=== PATIENT | female | born 1940 | race Caucasian/White ===

== ENCOUNTER 2016-09-25 05:42 | Inpatient (IN) | payer MEDICARE, OTHER ==
[~2016-09-25] VITALS: Ht 167.6 cm; Wt 62.0 kg
[2016-09-25] VITALS (11 sets, daily range): BP systolic 89–150; BP diastolic 50–70; PULSE 68–106; RESP 16–20; TEMP 97.5–100.3; O2SAT 93–99
[~2016-09-25 05:42] MED LIST: ACET325 PO; APIX5 PO; ATOR80TA PO; DIAZ5TAB PO; DILTCD240 PO; LORA10TA PO; METO100T PO; OMEP20TA PO
[2016-09-25] MEDS ORDERED: ACETAMINOPHEN 325 MG TAB PO ONE (06:00)
[2016-09-25] MEDS ORDERED: SODIUM CHLORID 0.9% 500 ML INJ 500 ML IV ONE ×2 (06:00→07:15)
--- NOTE | 2016-09-25 06:19 | PD ---
HPI Chief Complaint: generalized weakness Time Seen by Provider: 05:44 Travel History International Travel<30 days: No Contact w/Intl Traveler<30days: No Traveled to known affect area: No History of Present Illness HPI The patient is a 76-year-old female who presents to the emergency department via EMS for generalized weakness and malaise. The patient has a one- week history of generalized weakness which has progressively worsened. The patient called her physician, home physician at work, who evaluated her at home yesterday. They ordered an outpatient chest x-ray, but the patient does not know the results of the x-ray. The patient states she's had progressive weakness over the last week, was noted to have a fever of 100.4 by EMS. The patient does note decreased ability to get around the house with a walker, lives with her sister at home. The patient denies any dysuria, frequency, or urgency. She does note several episodes of vomiting with diarrhea over the last several days. She also complained of body aches which have currently resolved. She notes an occasional dry nonproductive cough. The patient does have a history of atrial fibrillation for which she takes Eliquis and metoprolol , denies digoxin use. However, she does not know her other medications. The patient's primary physician is a home health care physician, and her residency director is Dr. Ole Orellana. 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 ) Cardiovascular Problems: Yes (afib) Coronary Artery Disease: Yes Diabetes: No Endocrine: No Genitourinary: No Hepatitis: No Hiatal Hernia: Yes Hypertension: Yes Immune Disorder: No Musculoskeletal: No Neurologic: No Psychiatric: No Reproductive: No Respiratory: No Immunizations Current: No (pt refuses flue shot) Thyroid Disease: No Triglycerides - High: Yes Menopausal: Yes Past Surgical History Abdominal Surgery: No AICD: No Cardiac Surgery: Yes (r endartectomy) Ear Surgery: No Eye Surgery: Yes (CATARACTS BILAT) Genitourinary Surgery: No Gynecologic Surgery: No Joint Replacement: No Oral Surgery: No Pacemaker: No Thoracic Surgery: No Other Surgery: Yes (carotic endarterectomy, colon removed) Social History Alcohol Use: No Tobacco Use: No Substance Use: No Allergies-Medications (Allergen,Severity, Reaction): Coded Allergies: Sulfa (Verified Allergy, Severe, Hives, 05/19/16) Aspirin (Verified Allergy, Unknown, 05/19/16) Reported Meds & Prescriptions Reported Meds & Active Scripts Active Claritin 10 Mg Tab (Loratadine) 10 Mg Tab 10 Mg PO DAILY 30 Days Reported Tylenol (Acetaminophen) 325 Mg Tab 325 Mg PO Q4H PRN Diltiazem Cd 240 mg 240 Mg Cap 1 Cap PO DAILY Eliquis (Apixaban) 5 Mg Tab 1 Tab PO BID Atorvastatin 80 mg (Atorvastatin Calcium) 80 Mg Tab 1 Tab PO HS Metoprolol Tartrate 100 mg (Metoprolol Tartrate) 100 Mg Tab 100 Mg PO TID may take as needed for increased heart rate Omeprazole 20 mg (Omeprazole) 20 Mg Tab 2 Tabs PO DAILY Diazepam 5 mg (Diazepam) 5 Mg Tab 5 Mg PO TIDPRN Review of Systems Except as stated in HPI: all other systems reviewed are Neg General / Constitutional: Positive: Fever HENT: No: Lightheadedness Cardiovascular: No: Chest Pain or Discomfort Respiratory: Positive: Cough Gastrointestinal: Positive: Nausea, Vomiting, Diarrhea, No: Abdominal Pain Genitourinary: No: Dysuria Musculoskeletal: Positive: Weakness Neurologic: Positive: Weakness Physical Exam Narrative GENERAL: Awake, alert, pleasant 76-year-old female who appears her stated age and is in no acute respiratory distress. SKIN: Warm and dry. HEAD: Atraumatic. Normocephalic. EYES: Pupils equal and round. No scleral icterus. No injection or drainage. ENT: No nasal bleeding or discharge. Dry mucous membranes.. NECK: Trachea midline. No JVD. CARDIOVASCULAR: Irregularly irregular, tachycardic with a heart rate of 110. RESPIRATORY: No accessory muscle use. Few scattered rhonchi in the bases bilaterally. GASTROINTESTINAL: Abdomen soft, non-tender, nondistended. No rebound tenderness. Back: No CVA tenderness. MUSCULOSKELETAL: No obvious deformities. No clubbing. No cyanosis. No edema. NEUROLOGICAL: Awake and alert. No obvious cranial nerve deficits. Motor grossly within normal limits. Normal speech. PSYCHIATRIC: Appropriate mood and affect; insight and judgment normal. Data Data Last Documented VS Vital Signs Date Time Temp Pulse Resp B/P Pulse Ox O2 Delivery O2 Flow Rate FiO2 09/25/16 06:00 115 09/25/16 06:00 16 144/67 Room Air 09/25/16 05:50 100.3 95 Orders Complete Blood Count With Diff (09/25/16 05:56) Comprehensive Metabolic Panel (09/25/16 05:56) Urinalysis - C+S If Indicated (09/25/16 05:56) Influenzae A/B Antigen (09/25/16 05:56) Electrocardiogram (09/25/16 ) Chest, Single Ap (09/25/16 ) Lactic Acid (09/25/16 05:56) Blood Culture (09/25/16 05:56) Sodium Chlorid 0.9% 500 Ml Inj (Ns 500 M (09/25/16 06:00) Acetaminophen (Tylenol) (09/25/16 06:00) Digoxin (09/25/16 05:56) Cath For Specimen (09/25/16 06:08) Ct Abd/Pel W/O Iv Contrast (09/25/16 ) Creatine Kinase (Cpk) (09/25/16 05:58) Troponin I (09/25/16 05:58) Labs Laboratory Tests Test 09/25/16 09/25/16 05:58 06:10 White Blood Count 15.9 TH/MM3 Red Blood Count 3.99 MIL/MM3 Hemoglobin 11.9 GM/DL Hematocrit 35.8 % Mean Corpuscular Volume 89.8 FL Mean Corpuscular Hemoglobin 29.7 PG Mean Corpuscular Hemoglobin 33.1 % Concent Red Cell Distribution Width 13.3 % Platelet Count 212 TH/MM3 Mean Platelet Volume 7.7 FL Neutrophils (%) (Auto) 89.8 % Lymphocytes (%) (Auto) 4.1 % Monocytes (%) (Auto) 5.5 % Eosinophils (%) (Auto) 0.1 % Basophils (%) (Auto) 0.5 % Neutrophils # (Auto) 14.3 TH/MM3 Lymphocytes # (Auto) 0.7 TH/MM3 Monocytes # (Auto) 0.9 TH/MM3 Eosinophils # (Auto) 0.0 TH/MM3 Basophils # (Auto) 0.1 TH/MM3 CBC Comment DIFF FINAL Differential Comment Sodium Level 139 MEQ/L Potassium Level 3.7 MEQ/L Chloride Level 103 MEQ/L Carbon Dioxide Level 27.0 MEQ/L Anion Gap 9 MEQ/L Blood Urea Nitrogen 17 MG/DL Creatinine 1.16 MG/DL Estimat Glomerular Filtration 45 ML/MIN Rate Random Glucose 120 MG/DL Lactic Acid Level 1.2 mmol/L Calcium Level 8.6 MG/DL Total Bilirubin 0.6 MG/DL Aspartate Amino Transf 27 U/L (AST/SGOT) Alanine Aminotransferase 19 U/L (ALT/SGPT) Alkaline Phosphatase 104 U/L Total Creatine Kinase 78 U/L Troponin I LESS THAN 0.02 NG/ML Total Protein 6.9 GM/DL Albumin 3.2 GM/DL Digoxin Level LESS THAN 0.1 NG/ML Urine Color LIGHT-YELLOW Urine Turbidity CLEAR Urine pH 7.0 Urine Specific [place] 1.010 Urine Protein NEG mg/dL Urine Glucose (UA) NEG mg/dL Urine Ketones NEG mg/dL Urine Occult Blood SMALL Urine Nitrite NEG Urine Bilirubin NEG Urine Urobilinogen LESS THAN 2.0 MG/DL Urine Leukocyte Esterase NEG Urine RBC 24 /hpf Urine WBC 1 /hpf Microscopic Urinalysis Comment CULT NOT INDICATED MDM Medical Decision Making Medical Screen Exam Complete: Yes Emergency Medical Condition: Yes Medical Record Reviewed: Yes Interpretation(s) Date/Time Procedure Status Source Growth 09/25/16 05:58 Aerobic Blood Culture Received Blood Peripheral Pending 09/25/16 05:58 Anaerobic Blood Culture Received Blood Peripheral Pending 09/25/16 05:58 Influenza Types A,B Antigen (VANNA) - Final Complete Nasal Aspirate NEGATIVE FOR FLU A AND B ANTIGEN.... 09/25/16 06:15 Aerobic Blood Culture Received Blood Peripheral Pending 09/25/16 06:15 Anaerobic Blood Culture Received Blood Peripheral Pending Last Impressions Chest X-Ray 09/25/16 0000 Signed Impressions: Service Date/Time: September 06:06 - CONCLUSION: Abnormal chest appearance. Geoff Hu MD Abdomen/Pelvis CT 09/25/16 0000 Signed Impressions: Service Date/Time: September 06:40 - CONCLUSION: Findings in the lung bases warranting further evaluation with CT chest. No definite acute CT findings in the abdomen or pelvis. Geoff Hu MD Laboratory Tests Test 09/25/16 09/25/16 05:58 06:10 White Blood Count 15.9 TH/MM3 Red Blood Count 3.99 MIL/MM3 Hemoglobin 11.9 GM/DL Hematocrit 35.8 % Mean Corpuscular Volume 89.8 FL Mean Corpuscular Hemoglobin 29.7 PG Mean Corpuscular Hemoglobin 33.1 % Concent Red Cell Distribution Width 13.3 % Platelet Count 212 TH/MM3 Mean Platelet Volume 7.7 FL Neutrophils (%) (Auto) 89.8 % Lymphocytes (%) (Auto) 4.1 % Monocytes (%) (Auto) 5.5 % Eosinophils (%) (Auto) 0.1 % Basophils (%) (Auto) 0.5 % Neutrophils # (Auto) 14.3 TH/MM3 Lymphocytes # (Auto) 0.7 TH/MM3 Monocytes # (Auto) 0.9 TH/MM3 Eosinophils # (Auto) 0.0 TH/MM3 Basophils # (Auto) 0.1 TH/MM3 CBC Comment DIFF FINAL Differential Comment Sodium Level 139 MEQ/L Potassium Level 3.7 MEQ/L Chloride Level 103 MEQ/L Carbon Dioxide Level 27.0 MEQ/L Anion Gap 9 MEQ/L Blood Urea Nitrogen 17 MG/DL Creatinine 1.16 MG/DL Estimat Glomerular Filtration 45 ML/MIN Rate Random Glucose 120 MG/DL Lactic Acid Level 1.2 mmol/L Calcium Level 8.6 MG/DL Aspartate Amino Transf 27 U/L (AST/SGOT) Alanine Aminotransferase 19 U/L (ALT/SGPT) Albumin 3.2 GM/DL Urine Color LIGHT-YELLOW Urine Turbidity CLEAR Urine pH 7.0 Urine Specific [place] 1.010 Urine Protein NEG mg/dL Urine Glucose (UA) NEG mg/dL Urine Ketones NEG mg/dL Urine Occult Blood SMALL Urine Nitrite NEG Urine Bilirubin NEG Urine Urobilinogen LESS THAN 2.0 MG/DL Urine Leukocyte Esterase NEG Urine RBC 24 /hpf Urine WBC 1 /hpf Microscopic Urinalysis Comment CULT NOT INDICATED Differential Diagnosis Differential diagnosis includes UTI, influenza, pneumonia, hyponatremia, dehydration, hypokalemia, inability to care for self. Narrative Course IV was established, labs were drawn and sent, and the patient was placed on cardiac telemetry monitoring and continuous pulse oximetry monitoring. UA was sent to lab. Influenza screen was sent to lab. Chest x-ray was obtained. The patient was administered IV fluids and Tylenol. The patient's white count was elevated at 15.8. Influenza screen is negative. CT of the abdomen and pelvis was ordered to evaluate for possible colitis with nausea, vomiting, diarrhea, and decreased oral intake with fever. The patient was signed out to the oncoming physician at 7 AM. The patient may need admission/23 hour observation for IV fluid rehydration and physical therapy consultation. Chest x-ray reveals perihilar infiltrate and infiltrate in the right base, CT of the abdomen and pelvis reveals abnormalities in the chest, but no acute abdominal findings. UA is negative. The patient appears to have pneumonia, therefore, was administered Rocephin and Zithromax. The patient will be admitted to the on -call medical service. Sepsis Criteria SIRS Criteria (2 or more): Heart rate over 90, WBC > 90214, < 4000 or > 10% bands Physician Communication Physician Communication [facility] were paged for admission. I discussed the patient with Dr. Kennedy who agrees with admission. Diagnosis Primary Impression: Community acquired pneumonia Additional Impression: Sepsis Qualified Code: A41.9 - Sepsis, due to unspecified organism Admitting Information Admitting Physician Requests: Admit Condition: Stable Sj Torrez MD Sep 25, 2016 06:19
[2016-09-25 06:38] LABS: BLOOD, URINE SMALL (NEG); GLUCOSE,URINE NEG (NEG); KETONE, URINE NEG (NEG); NITRITE,URINE NEG (NEG); URINE COLOR LIGHT-YELLOW (YELLW/STRAW)
--- NOTE | 2016-09-25 06:41 | RADRPT ---
EXAM DATE/TIME: 09/25/2016 06:06 [facility] COMPARISON: CHEST SINGLE AP, April 17, 2016, 13:41. INDICATIONS : Fever. MEDICAL HISTORY : A-Fib SURGICAL HISTORY : None. ENCOUNTER: Initial ACUITY: 1 day PAIN SCORE: 0/10 LOCATION: Bilateral chest FINDINGS: There is mild perihilar and basilar infiltrate on the right. Slight nodular density at the lateral le ft lung base. Cardiomediastinal contours grossly satisfactory for technique and projection. CONCLUSION: Abnormal chest appearance. Geoff Hu MD on September 25, 2016 at 6:38 Board Certified Radiologist. This report was verified electronically.
[2016-09-25 06:42] LABS: AUTOMATED NEUTROPHIL # 14.3 TH/MM3 (1.8-7.7); BASOPHIL # 0.1 TH/MM3 (0-0.2); BASOPHIL % 0.5 % (0.0-2.0); EOSINOPHIL % 0.1 % (0.0-4.0); HEMATOCRIT 35.8 % (35.0-46.0); HEMO FLAGS DIFF FINAL; LYMPH % 4.1 % (9.0-44.0); LYMPHOCYTE # 0.7 TH/MM3 (1.0-4.8); MEAN CELL VOLUME 89.8 FL (80.0-100.0); MEAN CORPUSCULAR HEMOGLOBIN 29.7 PG (27.0-34.0); MEAN CORPUSCULAR HGB CONC 33.1 % (32.0-36.0); MONO % 5.5 % (0.0-8.0); NEUT % 89.8 % (16.0-70.0); PLATELET COUNT 212 TH/MM3 (150-450); RED BLOOD COUNT 3.99 MIL/MM3 (4.00-5.30); RED CELL DISTRIBUTION WIDTH 13.3 % (11.6-17.2); WHITE BLOOD COUNT 15.9 TH/MM3 (4.0-11.0)
[2016-09-25 06:48] LABS: ALT (GPT) 19 U/L (10-53); ANION GAP 9 MEQ/L (5-15); AST (GOT) 27 U/L (15-37); BLOOD UREA NITROGEN 17 MG/DL (7-18); CHLORIDE 103 MEQ/L (98-107); GLOMERULAR FILTRATION RATE 45 ML/MIN (>89); POTASSIUM 3.7 MEQ/L (3.5-5.1); SODIUM (NA) 139 MEQ/L (136-145)
[2016-09-25 06:53] LABS: COMMENT (UR) CULT NOT INDICATED; CULTURE IF INDICATED CULT NOT INDICATED
--- NOTE | 2016-09-25 06:55 | RADRPT ---
EXAM DATE/TIME: 09/25/2016 06:40 [facility] COMPARISON: No previous studies available for comparison. INDICATIONS : Malaise and diarrhea for one week. ORAL CONTRAST: No oral contrast ingested. RADIATION DOSE: 6.13 CTDIvol (mGy) MEDICAL HISTORY : Hypertension. Hernia, hiatal. skin cancer, colorectal cancer SURGICAL HISTORY : colectomy ENCOUNTER: Initial ACUITY: 1 week PAIN SCALE: 6/10 LOCATION: abdomen TECHNIQUE: Volumetric scanning of the abdomen and pelvis was performed. Using automated exposure control and ad justment of the mA and/or kV according to patient size, radiation dose was kept as low as reasonably achievable to obtain optimal diagnostic quality images. FINDINGS: LOWER LUNGS: Nodular density in the anterior lateral left lung base. Mild infiltrate and effusion at the right bas e. LIVER: Homogeneous density without lesion. There is no dilation of the biliary tree. No calcified gallston es. SPLEEN: Normal size without lesion. PANCREAS: Within normal limits. KIDNEYS: Normal in size and shape. There is no mass, stone, or hydronephrosis. ADRENAL GLANDS: Within normal limits. VASCULAR: Dense atherosclerotic calcification involving aorta and branch vessels. 3.1 cm abdominal aortic aneur ysm. BOWEL/MESENTERY: The stomach, small bowel, and colon demonstrate no acute abnormality. There is no free intraperitone al air or fluid. ABDOMINAL WALL: Within normal limits. RETROPERITONEUM: There is no lymphadenopathy. BLADDER: No wall thickening or mass. REPRODUCTIVE: Within normal limits. INGUINAL: There is no lymphadenopathy or hernia. MUSCULOSKELETAL: Within normal limits for patient age. CONCLUSION: Findings in the lung bases warranting further evaluation with CT chest. No definite acute CT findings in the abdomen or pelvis. Geoff Hu MD on September 25, 2016 at 6:50 Board Certified Radiologist. This report was verified electronically.
[2016-09-25 07:03] LABS: ALKALINE PHOSPHATASE 104 U/L (45-117); DIGOXIN LESS THAN 0.1 NG/ML (0.8-2.0); TOTAL BILIRUBIN ADULT 0.6 MG/DL (0.2-1.0)
[2016-09-25 07:05] LABS: CREATINE KINASE 78 U/L (26-192)
[2016-09-25] MEDS ORDERED: AZITHROMYCIN INJ 500 MG in SODIUM CHLOR 0.9% 250 ML INJ 250 ML IV ONE (07:15)
[2016-09-25] MEDS ORDERED: ONDANSETRON HCL 4 MG/2 ML VIAL IVP PRN (07:15)
[2016-09-25] MEDS ORDERED: cefTRIAXone INJ 1,000 MG in SODIUM CHLORIDE 0.9% INJ 100 ML IV ONE (07:15)
[2016-09-25] MEDS ORDERED: SODIUM CHLORIDE 0.9% FLUSH 5 ML FLUSH FLUSH PRN (07:15)
[2016-09-25] MEDS ORDERED: NALOXONE HCL 0.4 MG/ML AMP IV PRN (07:15)
[2016-09-25] MEDS ORDERED: LIPI80TA PO (07:17)
[2016-09-25] MEDS ORDERED: APIX5TAB PO (07:17)
[2016-09-25] MEDS ORDERED: DILT-64 PO (07:17)
[2016-09-25] MEDS ORDERED: DIAZ5TAB PO (07:17)
[2016-09-25] MEDS ORDERED: OMEP20CA2 PO (07:17)
[2016-09-25] MEDS ORDERED: METO100T PO (07:17)
[2016-09-25] MEDS ORDERED: DIAZEPAM 5 MG TAB PO PRN (08:15)
--- NOTE | 2016-09-25 08:23 | HHI.HP ---
[facility] Non-Staff Admission Diagnosis pneumonia, sepsis, hypoxia Diagnoses: Chief Complaint: generalized weakness, sob Travel History International Travel<30 Days: No Contact w/Intl Traveler <30 Da: No Traveled to Known Affected Are: No History of Present Illness Pleasant 76 yo female with PMH of HTN, HLD, AFIB, GERD, anxiety came to the ED with c/o generalized weakness, sob, cough for the past 3-4 days getting worse. Patient says she usually ambulate with a walker at home. Says she felt so weak that she fell twice, says she did not hit any parts of her body. Saus she is coughing but not much because she feels weak. Says she has associated fevers today took tylenol at home on multiple occasions. No headache. No chest pain. No n/v/d/c. Review of Systems Other 12 ROS reviewed and negative except stated in HPI Past Family Social History Past Medical History HTN, HLD, AFIB, GERD, anxiety Past Surgical History Bilateral knee meniscal repair Right CEA Reported Medications Last Impressions Chest X-Ray 09/25/16 0000 Signed Impressions: Service Date/Time: September 06:06 - CONCLUSION: Abnormal chest appearance. Geoff Hu MD Abdomen/Pelvis CT 09/25/16 0000 Signed Impressions: Service Date/Time: September 06:40 - CONCLUSION: Findings in the lung bases warranting further evaluation with CT chest. No definite acute CT findings in the abdomen or pelvis. Geoff Hu MD Allergies: Coded Allergies: Sulfa (Verified Allergy, Severe, Hives, 05/19/16) Aspirin (Verified Allergy, Unknown, 05/19/16) Family History Mother HTN, arthritis Father colon cancer Brother with brain aneurysm Social History Quit smoking in 1998 Quit EtOH use in 1981 Physical Exam Vital Signs Vital Signs Date Time Temp Pulse Resp B/P Pulse Ox O2 Delivery O2 Flow Rate FiO2 09/25/16 07:10 99.8 94 20 140/66 99 Nasal Cannula 2 09/25/16 06:00 115 09/25/16 06:00 100 16 144/67 Room Air 09/25/16 05:50 100.3 106 16 150/70 95 Physical Exam GENERAL: This is a peasant 76 yo female, well-nourished, well-developed patient , in no apparent distress. SKIN: No rashes, ecchymoses or lesions. Cool and dry. HEAD: Atraumatic. Normocephalic. No temporal or scalp tenderness. EYES: Pupils equal round and reactive. Extraocular motions intact. No scleral icterus. No injection or drainage. ENT: Nose without bleeding, purulent drainage or septal hematoma. Throat without erythema, tonsillar hypertrophy or exudate. Uvula midline. Airway patent. NECK: Trachea midline. No JVD or lymphadenopathy. Supple, nontender, no meningeal signs. CARDIOVASCULAR: Regular rate and rhythm without murmurs, gallops, or rubs. RESPIRATORY: Clear to auscultation. Breath sounds equal bilaterally. No wheezes , rales, or rhonchi. GASTROINTESTINAL: Abdomen soft, non-tender, nondistended. No hepato-splenomegaly , or palpable masses. No guarding. MUSCULOSKELETAL: Extremities without clubbing, cyanosis, or edema. No joint tenderness, effusion, or edema noted. No calf tenderness. Negative Homans sign bilaterally. NEUROLOGICAL: Awake and alert. Cranial nerves II through XII intact. Motor and sensory grossly within normal limits. Five out of 5 muscle strength in all muscle groups. Normal speech. Laboratory Laboratory Tests Test 09/25/16 09/25/16 05:58 06:10 White Blood Count 15.9 Red Blood Count 3.99 Hemoglobin 11.9 Hematocrit 35.8 Mean Corpuscular Volume 89.8 Mean Corpuscular Hemoglobin 29.7 Mean Corpuscular Hemoglobin 33.1 Concent Red Cell Distribution Width 13.3 Platelet Count 212 Mean Platelet Volume 7.7 Neutrophils (%) (Auto) 89.8 Lymphocytes (%) (Auto) 4.1 Monocytes (%) (Auto) 5.5 Eosinophils (%) (Auto) 0.1 Basophils (%) (Auto) 0.5 Neutrophils # (Auto) 14.3 Lymphocytes # (Auto) 0.7 Monocytes # (Auto) 0.9 Eosinophils # (Auto) 0.0 Basophils # (Auto) 0.1 CBC Comment DIFF FINAL Differential Comment Sodium Level 139 Potassium Level 3.7 Chloride Level 103 Carbon Dioxide Level 27.0 Anion Gap 9 Blood Urea Nitrogen 17 Creatinine 1.16 Estimat Glomerular Filtration 45 Rate Random Glucose 120 Lactic Acid Level 1.2 Calcium Level 8.6 Total Bilirubin 0.6 Aspartate Amino Transf 27 (AST/SGOT) Alanine Aminotransferase 19 (ALT/SGPT) Alkaline Phosphatase 104 Total Creatine Kinase 78 Troponin I LESS THAN 0.02 Total Protein 6.9 Albumin 3.2 Digoxin Level LESS THAN 0.1 Urine Color LIGHT-YELLOW Urine Turbidity CLEAR Urine pH 7.0 Urine Specific [place] 1.010 Urine Protein NEG Urine Glucose (UA) NEG Urine Ketones NEG Urine Occult Blood SMALL Urine Nitrite NEG Urine Bilirubin NEG Urine Urobilinogen LESS THAN 2.0 Urine Leukocyte Esterase NEG Urine RBC 24 Urine WBC 1 Microscopic Urinalysis Comment CULT NOT INDICATED Date/Time Procedure Status Source Growth 09/25/16 06:15 Aerobic Blood Culture Received Blood Peripheral Pending 09/25/16 06:15 Anaerobic Blood Culture Received Blood Peripheral Pending 09/25/16 05:58 Influenza Types A,B Antigen (VANNA) - Final Complete Nasal Aspirate NEGATIVE FOR FLU A AND B ANTIGEN.... Result Diagram: 09/25/16 0558 09/25/16 0558 Imaging Last Impressions Chest X-Ray 09/25/16 0000 Signed Impressions: Service Date/Time: September 06:06 - CONCLUSION: Abnormal chest appearance. Geoff Hu MD Abdomen/Pelvis CT 09/25/16 0000 Signed Impressions: Service Date/Time: September 06:40 - CONCLUSION: Findings in the lung bases warranting further evaluation with CT chest. No definite acute CT findings in the abdomen or pelvis. Geoff Hu MD Assessment and Plan Assessment and Plan Pleasant 76 yo female with PMH of HTN, HLD, AFIB, GERD, anxiety came to the ED with c/o generalized weakness, sob, cough for the past 3-4 days getting worse. Sepsis on admission ( leukocytosis, tachycardia). Pneumonia. Hypoxia. Acute respiratory failure requiring O2 by NC. Patient doesn't use O2 at home. Fever 100.3 ( patient took tylenol on multiple occasions at home [employer]PER[employer]) IGOR likely dehydration 2/2 decreased PO intake Blood cx pending Sputum cx pending. Legionella/Pneumococal urine Ag pending. Influenza A/B negative Start Azithomycinn and ceftriaxone IV O2 supplement , keep O2 sat > 94% CXR reviewed Repeat CBC, BMP in the morning Gentle IVF, monitor kidney function Chronic medical problems stable at this time. HTN, HLD, AFIB, GERD, anxiety Restart home meds. Monitor VS. Adjust meds if need. DVT ppx SCD/TEDs, on xarelto. Code Status full Discussed Condition With patient, nurse Physician Certification 2 Midnight Certification Type: Admission for Inpatient Services Order for Inpatient Services The services are ordered in accordance with Medicare regulations or non- Medicare payer requirements, as applicable. In the case of services not specified as inpatient-only, they are appropriately provided as inpatient services in accordance with the 2-midnight benchmark. Estimated LOS (days): 3 days is the estimated time the patient will need to remain in the hospital, assuming treatment plan goals are met and no additional complications. Post-Hospital Plan: Not yet determined Lesley Huerta MD Sep 25, 2016 08:23
[2016-09-25] MEDS: DILTIAZEM-CD 240 MG CAP ER PO SCH (09:00)
[2016-09-25] MEDS: METOPROLOL TARTRATE 100 MG TAB PO SCH ×3 (09:00→18:48)
[2016-09-25] MEDS: APIXABAN 5 MG TABLET PO SCH ×2 (12:12→21:47)
[2016-09-25] MEDS: PANTOPRAZOLE SOD 20 MG DELAYED RELEASE TAB PO SCH (12:13)
[2016-09-25] MEDS: SODIUM CHLORIDE 0.9% FLUSH 5 ML FLUSH FLUSH SCH ×2 (12:19→21:47)
[2016-09-25] MEDS: guaiFENesin E.R. 600 MG TAB PO SCH ×2 (15:25→21:47)
[2016-09-25] MEDS: SODIUM CHLOR 0.9% 1000 ML INJ 1,000 ML IV SCH ×2 (16:18→17:00)
[2016-09-25] MEDS ORDERED: HEPARIN SODIUM - SQ 10,000 UNITS/ML VIAL SQ SCH (18:00)
--- NOTE | 2016-09-25 20:56 | EKG ---
Date Performed: 09/25/2016 Time Performed: 05:31:10 PTAGE: 76 years EKG: ATRIAL FIBRILLATION WITH RAPID VENTRICULAR RESPONSE ABNORMAL RHYTHM ECG PREVIOUS TRACING : 04/17/2016 13.16 DOCTOR: Werner Vazquez Interpretating Date/Time 09/25/2016 20:54:40
[2016-09-25] MEDS: ATORVASTATIN 80 MG TAB PO SCH (21:47)
[2016-09-26 02:00] VITALS: BP 140/70; PULSE 105; RESP 19; TEMP 99.3; O2SAT 93
[2016-09-26] MEDS: SODIUM CHLOR 0.9% 1000 ML INJ 1,000 ML IV SCH ×3 (03:00→17:43)
[2016-09-26 06:00] VITALS: BP 135/69; PULSE 98; RESP 19; TEMP 99.3; O2SAT 93
[2016-09-26] MEDS: cefTRIAXone INJ 1,000 MG in SODIUM CHLORIDE 0.9% INJ 100 ML IV SCH (06:06)
[2016-09-26 06:07] LABS: AUTOMATED NEUTROPHIL # 10.3 TH/MM3 (1.8-7.7); BASOPHIL # 0.1 TH/MM3 (0-0.2); BASOPHIL % 0.5 % (0.0-2.0); EOSINOPHIL % 0.3 % (0.0-4.0); HEMATOCRIT 38.2 % (35.0-46.0); HEMO FLAGS DIFF FINAL; LYMPH % 9.3 % (9.0-44.0); LYMPHOCYTE # 1.2 TH/MM3 (1.0-4.8); MEAN CELL VOLUME 88.9 FL (80.0-100.0); MEAN CORPUSCULAR HEMOGLOBIN 29.9 PG (27.0-34.0); MEAN CORPUSCULAR HGB CONC 33.7 % (32.0-36.0); MONO % 8.8 % (0.0-8.0); NEUT % 81.1 % (16.0-70.0); PLATELET COUNT 212 TH/MM3 (150-450); WHITE BLOOD COUNT 12.8 TH/MM3 (4.0-11.0)
[2016-09-26 06:35] LABS: ALT (GPT) 22 U/L (10-53); ANION GAP 8 MEQ/L (5-15); AST (GOT) 38 U/L (15-37); BICARBONATE 30.1 MEQ/L (21.0-32.0); BLOOD UREA NITROGEN 12 MG/DL (7-18); CHLORIDE 104 MEQ/L (98-107); GLOMERULAR FILTRATION RATE 62 ML/MIN (>89); POTASSIUM 3.7 MEQ/L (3.5-5.1); SODIUM (NA) 142 MEQ/L (136-145)
[2016-09-26 06:38] LABS: ALKALINE PHOSPHATASE 108 U/L (45-117); TOTAL BILIRUBIN ADULT 0.8 MG/DL (0.2-1.0)
[2016-09-26] MEDS: guaiFENesin E.R. 600 MG TAB PO SCH ×2 (07:56→21:05)
[2016-09-26] MEDS: PANTOPRAZOLE SOD 20 MG DELAYED RELEASE TAB PO SCH (07:56)
[2016-09-26] MEDS: METOPROLOL TARTRATE 100 MG TAB PO SCH ×3 (08:59→17:43)
[2016-09-26] MEDS: DILTIAZEM-CD 240 MG CAP ER PO SCH (08:59)
[2016-09-26] MEDS: SODIUM CHLORIDE 0.9% FLUSH 5 ML FLUSH FLUSH SCH ×2 (08:59→21:00)
[2016-09-26] MEDS: AZITHROMYCIN INJ 500 MG in SODIUM CHLOR 0.9% 250 ML INJ 250 ML IV SCH (08:59)
[2016-09-26] MEDS ORDERED: INFLUENZA VIRUS VACCINE (QUADRIVALENT) 0.5 ML SYR IM ONE (10:00)
[2016-09-26] MEDS ORDERED: PNEUMOCOCCAL POLYVALENT INJ 25 MCG/0.5 ML SYR IM ONE (10:00)
[2016-09-26] MEDS: APIXABAN 5 MG TABLET PO SCH ×2 (10:16→21:05)
--- NOTE | 2016-09-26 10:44 | HHI.PR ---
Subjective Remarks Feels improved today. However she is still weak and not able to go to the bedside commode without help. She however wants to improve and go home instead of SNF. No fevers overnight. No n/v/d/c. Objective Vitals Vital Signs Date Time Temp Pulse Resp B/P Pulse Ox O2 Delivery O2 Flow Rate FiO2 09/26/16 06:00 99.3 98 19 135/69 93 09/26/16 02:00 99.3 105 19 140/70 93 09/25/16 23:40 99.3 89 19 137/70 93 09/25/16 19:43 79 09/25/16 18:08 97.9 76 18 106/66 98 09/25/16 18:01 95 09/25/16 13:09 97.5 78 18 103/64 98 I/O 09/25/16 09/25/16 09/25/16 09/26/16 09/26/16 09/26/16 07:00 15:00 23:00 07:00 15:00 23:00 Intake Total 120 ml 1100 ml Balance 120 ml 1100 ml Intake Oral 120 ml 1100 ml # Voids 2 12 # Bowel Movements 1 Result Diagram: 09/26/16 0529 09/26/16 0529 Imaging Last Impressions Chest X-Ray 09/25/16 0000 Signed Impressions: Service Date/Time: September 06:06 - CONCLUSION: Abnormal chest appearance. Geoff Hu MD Abdomen/Pelvis CT 09/25/16 0000 Signed Impressions: Service Date/Time: September 06:40 - CONCLUSION: Findings in the lung bases warranting further evaluation with CT chest. No definite acute CT findings in the abdomen or pelvis. Geoff Hu MD Objective Remarks GENERAL: This is a peasant 76 yo female, well-nourished, well-developed patient , in no apparent distress. SKIN: No rashes, ecchymoses or lesions. Cool and dry. HEAD: Atraumatic. Normocephalic. No temporal or scalp tenderness. EYES: Pupils equal round and reactive. Extraocular motions intact. No scleral icterus. No injection or drainage. ENT: Nose without bleeding, purulent drainage or septal hematoma. Throat without erythema, tonsillar hypertrophy or exudate. Uvula midline. Airway patent. NECK: Trachea midline. No JVD or lymphadenopathy. Supple, nontender, no meningeal signs. CARDIOVASCULAR: Regular rate and rhythm without murmurs, gallops, or rubs. RESPIRATORY: Clear to auscultation. Breath sounds equal bilaterally. No wheezes , rales, or rhonchi. GASTROINTESTINAL: Abdomen soft, non-tender, nondistended. No hepato-splenomegaly , or palpable masses. No guarding. MUSCULOSKELETAL: Extremities without clubbing, cyanosis, or edema. No joint tenderness, effusion, or edema noted. No calf tenderness. Negative Homans sign bilaterally. NEUROLOGICAL: Awake and alert. Cranial nerves II through XII intact. Motor and sensory grossly within normal limits. Five out of 5 muscle strength in all muscle groups. Normal speech. A/P Assessment and Plan Pleasant 76 yo female with PMH of HTN, HLD, AFIB, GERD, anxiety came to the ED with c/o generalized weakness, sob, cough for the past 3-4 days getting worse. Sepsis on admission ( leukocytosis, tachycardia). Pneumonia. Hypoxia. Acute respiratory failure requiring O2 by NC. Patient doesn't use O2 at home. Fever 100.3 ( patient took tylenol on multiple occasions at home [employer]) IGOR likely dehydration 2/2 decreased PO intake Blood cx pending Sputum cx pending. Legionella/Pneumococal urine Ag pending. Influenza A/B negative Continue Azithomycinn and ceftriaxone IV O2 supplement , keep O2 sat > 94% CXR reviewed Repeat CBC, BMP in the morning Gentle IVF, monitor kidney function Chronic medical problems stable at this time. HTN, HLD, AFIB, GERD, anxiety Restart home meds. Monitor VS. Adjust meds if need. DVT ppx SCD/TEDs, on xarelto. Code Status full Discussed Condition With patient, nurse Lesley Huerta MD Sep 26, 2016 10:44
[2016-09-26 16:12] VITALS: BP 123/58; PULSE 87; RESP 20; TEMP 98.9; O2SAT 94
[2016-09-26 20:30] VITALS: BP 140/67; PULSE 100; RESP 18; TEMP 98.4; O2SAT 96
[2016-09-26] MEDS: ATORVASTATIN 80 MG TAB PO SCH (21:05)
[2016-09-26 22:39] VITALS: PULSE 98
[2016-09-27] VITALS: BP 138/68; PULSE 89; RESP 17; TEMP 98.1; O2SAT 95
[2016-09-27 04:45] VITALS: BP 142/67; PULSE 90; RESP 17; TEMP 98.3; O2SAT 96
[2016-09-27] MEDS: cefTRIAXone INJ 1,000 MG in SODIUM CHLORIDE 0.9% INJ 100 ML IV SCH (05:28)
[2016-09-27 07:53] VITALS: BP 164/80; PULSE 107; RESP 20; TEMP 96.7; O2SAT 95
[2016-09-27] MEDS: PANTOPRAZOLE SOD 20 MG DELAYED RELEASE TAB PO SCH (08:17)
[2016-09-27] MEDS: guaiFENesin E.R. 600 MG TAB PO SCH (08:17)
[2016-09-27] MEDS: DILTIAZEM-CD 240 MG CAP ER PO SCH (08:17)
[2016-09-27] MEDS: METOPROLOL TARTRATE 100 MG TAB PO SCH (08:17)
[2016-09-27] MEDS: APIXABAN 5 MG TABLET PO SCH (08:17)
[2016-09-27] MEDS: AZITHROMYCIN INJ 500 MG in SODIUM CHLOR 0.9% 250 ML INJ 250 ML IV SCH (08:18)
[2016-09-27] MEDS: SODIUM CHLORIDE 0.9% FLUSH 5 ML FLUSH FLUSH SCH (08:18)
[2016-09-27] MEDS: SODIUM CHLOR 0.9% 1000 ML INJ 1,000 ML IV SCH (08:20)
[2016-09-27 09:19] LABS: AUTOMATED NEUTROPHIL # 9.6 TH/MM3 (1.8-7.7); BASOPHIL % 0.4 % (0.0-2.0); EOSINOPHIL % 0.4 % (0.0-4.0); HEMATOCRIT 37.6 % (35.0-46.0); HEMO FLAGS DIFF FINAL; LYMPH % 9.9 % (9.0-44.0); LYMPHOCYTE # 1.2 TH/MM3 (1.0-4.8); MEAN CELL VOLUME 89.3 FL (80.0-100.0); MEAN CORPUSCULAR HEMOGLOBIN 29.8 PG (27.0-34.0); MEAN CORPUSCULAR HGB CONC 33.3 % (32.0-36.0); NEUT % 80.3 % (16.0-70.0); PLATELET COUNT 236 TH/MM3 (150-450); RED BLOOD COUNT 4.21 MIL/MM3 (4.00-5.30); RED CELL DISTRIBUTION WIDTH 13.2 % (11.6-17.2); WHITE BLOOD COUNT 11.9 TH/MM3 (4.0-11.0)
[2016-09-27] MEDS ORDERED: MUCI600T PO (09:45)
[2016-09-27] MEDS ORDERED: AZIT250T3 PO (09:46)
--- NOTE | 2016-09-27 09:47 | HHI.DCPOC ---
Discharge Care Plan Goals to Promote Your Health * To prevent worsening of your condition and complications * To maintain your health at the optimal level Directions to Meet Your Goals Take your medications as prescribed Follow your dietary instruction Follow activity as directed Keep your appointments as scheduled Take your immunizations and boosters as scheduled If your symptoms worsen call your PCP, if no PCP go to Urgent Care Center or Emergency Room Smoking is Dangerous to Your Health. Avoid second hand smoke Call the 24-hour hour crisis hotline for domestic abuse at Lesley Huerta MD Sep 27, 2016 09:47
--- NOTE | 2016-09-27 09:47 | HHI.DS ---
Discharge Summary Admission Date Sep 25, 2016 at 07:19 Discharge Date: Sep 27, 2016 Admitting Diagnosis pneumonia, sepsis, hypoxia (1) Community acquired pneumonia ICD Code: J18.9 Diagnosis: Principal (2) Sepsis ICD Code: A41.9 Diagnosis: Principal (3) Lung nodule seen on imaging study ICD Code: R91.1 Diagnosis: Secondary (4) Hypertension ICD Code: I10 Diagnosis: Secondary (5) Arthritis ICD Code: M19.90 Diagnosis: Secondary (6) Atrial fibrillation ICD Code: I48.91 Diagnosis: Secondary Procedures none Brief History - From Admission Pleasant 76 yo female with PMH of HTN, HLD, AFIB, GERD, anxiety came to the ED with c/o generalized weakness, sob, cough for the past 3-4 days getting worse. Patient says she usually ambulate with a walker at home. Says she felt so weak that she fell twice, says she did not hit any parts of her body. Saus she is coughing but not much because she feels weak. Says she has associated fevers today took tylenol at home on multiple occasions. No headache. No chest pain. No n/v/d/c. CBC/BMP: 09/27/16 0750 09/26/16 0529 Significant Findings Laboratory Tests Test 09/25/16 09/25/16 09/26/16 09/27/16 05:58 06:10 05:29 07:50 White Blood Count 15.9 TH/MM3 12.8 TH/MM3 11.9 TH/MM3 (4.0-11.0) (4.0-11.0) (4.0-11.0) Red Blood Count 3.99 MIL/MM3 (4.00-5.30) Neutrophils (%) (Auto) 89.8 % 81.1 % 80.3 % (16.0-70.0) (16.0-70.0) (16.0-70.0) Lymphocytes (%) (Auto) 4.1 % (9.0-44.0) Neutrophils # (Auto) 14.3 TH/MM3 10.3 TH/MM3 9.6 TH/MM3 (1.8-7.7) (1.8-7.7) (1.8-7.7) Lymphocytes # (Auto) 0.7 TH/MM3 (1.0-4.8) Creatinine 1.16 MG/DL (0.50-1.00) Estimat Glomerular Filtration 45 ML/MIN (>89) 62 ML/MIN (>89) Rate Random Glucose 120 MG/DL (74-106) Troponin I LESS THAN 0.02 NG/ML (0.02-0.05) Albumin 3.2 GM/DL 3.0 GM/DL (3.4-5.0) (3.4-5.0) Digoxin Level LESS THAN 0.1 NG/ML (0.8-2.0) Urine Occult Blood SMALL (NEG) Urine RBC 24 /hpf (0-3) Monocytes (%) (Auto) 8.8 % (0.0-8.0) 9.0 % (0.0-8.0) Monocytes # (Auto) 1.1 TH/MM3 1.1 TH/MM3 (0-0.9) (0-0.9) Aspartate Amino Transf 38 U/L (15-37) (AST/SGOT) Imaging Last Impressions Chest X-Ray 09/25/16 0000 Signed Impressions: Service Date/Time: September 06:06 - CONCLUSION: Abnormal chest appearance. Geoff Hu MD Abdomen/Pelvis CT 09/25/16 0000 Signed Impressions: Service Date/Time: September 06:40 - CONCLUSION: Findings in the lung bases warranting further evaluation with CT chest. No definite acute CT findings in the abdomen or pelvis. Geoff Hu MD PE at Discharge GENERAL: This is a peasant 76 yo female, well-nourished, well-developed patient , in no apparent distress. SKIN: No rashes, ecchymoses or lesions. Cool and dry. HEAD: Atraumatic. Normocephalic. No temporal or scalp tenderness. EYES: Pupils equal round and reactive. Extraocular motions intact. No scleral icterus. No injection or drainage. ENT: Nose without bleeding, purulent drainage or septal hematoma. Throat without erythema, tonsillar hypertrophy or exudate. Uvula midline. Airway patent. NECK: Trachea midline. No JVD or lymphadenopathy. Supple, nontender, no meningeal signs. CARDIOVASCULAR: Regular rate and rhythm without murmurs, gallops, or rubs. RESPIRATORY: Clear to auscultation. Breath sounds equal bilaterally. No wheezes , rales, or rhonchi. GASTROINTESTINAL: Abdomen soft, non-tender, nondistended. No hepato-splenomegaly , or palpable masses. No guarding. MUSCULOSKELETAL: Extremities without clubbing, cyanosis, or edema. No joint tenderness, effusion, or edema noted. No calf tenderness. Negative Homans sign bilaterally. NEUROLOGICAL: Awake and alert. Cranial nerves II through XII intact. Motor and sensory grossly within normal limits. Five out of 5 muscle strength in all muscle groups. Normal speech. Pt update on day of discharge Feels much better. Less cough. Satting well on room air. Hospital Course Pleasant 76 yo female with PMH of HTN, HLD, AFIB, GERD, anxiety came to the ED with c/o generalized weakness, sob, cough for the past 3-4 days getting worse. Sepsis on admission ( leukocytosis, tachycardia). Pneumonia. Hypoxia. Acute respiratory failure requiring O2 by NC. Patient doesn't use O2 at home. Fever 100.3 ( patient took tylenol on multiple occasions at home [employer]) IGOR likely dehydration 2/2 decreased PO intake. Improved significantly with gentle IVF. Kidney indices back to normal. Blood cx NTD Sputum cx pending. Legionella/Pneumococal urine Ag negative. Influenza A/B negative Received IV abx Azithomycinn and ceftriaxone O2 supplement , keep O2 sat > 94%. Now satting well on room air. CXR reviewed Repeat CBC, BMP in the morning Gentle IVF, monitor kidney function Low potassium says she doesn't like the food here. Replace potassium. Chronic medical problems stable at this time. HTN, HLD, AFIB, GERD, anxiety Restart home meds. Monitor VS. Adjust meds if need. DVT ppx SCD/TEDs, on xarelto. Patient improved. Says she doesn't want to go to SNF says she has help at home her sister and her son. Says she would like to go home with home health. Patient also to follow up as OP with her pulm doctor. Pt Condition on Discharge: Fair Discharge Disposition: Disch w/ Home Health Serv Discharge Time: > 30 minutes Discharge Instructions DIET: Follow Instructions for: Heart Healthy Diet Activities you can perform: Regular-No Restrictions Follow up Referrals: PCP Follow-up - 3-5 Days Pulmonology - 1 Week New Medications: Azithromycin (Azithromycin) 250 Mg Tab 250 MG PO DIRECTED Take 2 tabs (500 mg) on day 1 then 1 tab daily x 4 days. Infection #6 Ref 0 TAB Guaifenesin ER 12 HR (Mucinex ER 12 HR) 600 Mg Reyna 600 MG PO BID Cough #12 TAB Continued Medications: Apixaban (Eliquis) 5 Mg Tab 10 MG PO BID Blood Clot Prevention #14 Ref 0 TAB Atorvastatin (Lipitor) 80 Mg Tab 80 MG PO HS Cholesterol Management #30 Ref 0 TAB Diazepam (Diazepam) 5 Mg Tab 5 MG PO TID PRN ANXIETY Ref 0 TAB Diltiazem CD 24 HR (Diltiazem CD 24 HR) 240 Mg Caper 240 MG PO DAILY #30 Ref 0 CAP Metoprolol Tartrate (Metoprolol Tartrate) 100 Mg Tab 100 MG PO TID #60 Ref 0 TAB Omeprazole (Omeprazole) 20 Mg Cap 20 MG PO DAILY Lesley Huerta MD Sep 27, 2016 09:47
[2016-09-27 09:53] LABS: BICARBONATE 28.7 MEQ/L (21.0-32.0)
--- NOTE | 2016-09-27 09:53 | HHI.FF ---
Face to Face Verification Diagnosis: (1) Atrial fibrillation (2) Arthritis (3) Gait disorder (4) Sepsis (5) Hypertension (6) Acid reflux disease (7) Anxiety (8) Hyperlipidemia (9) Lung mass (10) Community acquired pneumonia Physical Therapy Order: Evaluate and Treat Home Health Nursing Order: Medical education Signs/symptoms of disease process Medication education-adverse effect Nursing assessment with vital signs I have seen patient Rayne Saldaña on 09/27/16. My clinical findings support the need for the requested home health care services because: Ltd mobility - disease progression Patient has SOB I certify that my clinical findings support that this patient is homebound because: Post-op weakness Impaired cognitive ability/safety Unsteady gait/balance Lesley Huerta MD Sep 27, 2016 09:53
[2016-09-27 09:57] LABS: POTASSIUM 2.8 MEQ/L (3.5-5.1)
[2016-09-27] MEDS ORDERED: MAGNESIUM OXIDE 400 MG TAB PO ONE (10:00)
[2016-09-27] MEDS ORDERED: POTASSIUM CHLORIDE 10 MEQ CONTROLLED RELEASE TAB PO ONE (10:00)
[2016-09-27 12:01] VITALS: BP 164/77; PULSE 94; RESP 16; TEMP 98.2; O2SAT 96
[2016-09-27 12:40] LABS: MAGNESIUM 1.4 MG/DL (1.5-2.5); POTASSIUM 3.4 MEQ/L (3.5-5.1)
== END 2016-09-27 13:15 | disposition home health service (06) | DRG 871 ==
LOC: NEPE 05:42 → NEDA 07:19 → N05B 10:11
PROVIDERS: ADMIT Hospitalist; ATTEND Hospitalist
DX: A41.9 Sepsis, unspecified organism (principal); J18.9 Pneumonia, unspecified organism; J96.01 Acute respiratory failure with hypoxia; N17.9 Acute kidney failure, unspecified; I48.2 Chronic atrial fibrillation; E86.0 Dehydration; I10 Essential (primary) hypertension; K21.9 Gastro-esophageal reflux disease without esophagitis; R53.1 Weakness; R91.1 Solitary pulmonary nodule; E78.5 Hyperlipidemia, unspecified; F41.9 Anxiety disorder, unspecified; M19.90 Unspecified osteoarthritis, unspecified site; Z85.038 Personal history of other malignant neoplasm of large intestine; Z85.828 Personal history of other malignant neoplasm of skin; Z79.01 Long term (current) use of anticoagulants; Z87.891 Personal history of nicotine dependence; Z88.6 Allergy status to analgesic agent; Z88.2 Allergy status to sulfonamides; Z23 Encounter for immunization
CPT/HCPCS: 71010; 74176; 80048; 80053; 80162; 81001; 82550; 83605; 83735; 84132; 84484; 85025; 87040; 87449; 87804; 90471; 90472; 90686; 90732; 93005; 96374; G0008; G0009; J0456; J0696; J7030; J7040; J7050; P9612; Q2038

== ENCOUNTER 2016-10-04 23:39 | Inpatient (IN) | payer MEDICARE, OTHER ==
[~2016-10-04] VITALS: Ht 152.4 cm; Wt 59.0 kg
[~2016-10-04 23:39] MED LIST changes: -ACET325 PO; -APIX5 PO; +APIX5TAB PO; -ATOR80TA PO; +AZIT250T3 PO; +DILT-64 PO; -DILTCD240 PO; +LIPI80TA PO; -LORA10TA PO; +MUCI600T PO; +OMEP20CA2 PO; -OMEP20TA PO
[2016-10-04 23:51] VITALS: BP 170/92; PULSE 126; RESP 18; TEMP 99; O2SAT 96
[2016-10-05] VITALS (8 sets, daily range): BP systolic 99–130; BP diastolic 50–66; PULSE 67–105; RESP 14–20; TEMP 96.7–98.4; O2SAT 94–99
[2016-10-05] MEDS ORDERED: ONDANSETRON HCL 4 MG/2 ML VIAL IV PUSH ONE (00:15)
[2016-10-05] MEDS ORDERED: DILTIAZEM HCL 25 MG/5 ML VIAL IV ONE ×2 (00:15→02:15)
[2016-10-05] MEDS ORDERED: MORPHINE SULFATE 8 MG/ML INJ IV PUSH ONE (00:15)
[2016-10-05] MEDS ORDERED: SODIUM CHLORIDE 0.9% FLUSH 5 ML FLUSH IVF PRN (00:15)
[2016-10-05 00:45] LABS: AUTOMATED NEUTROPHIL # 13.6 TH/MM3 (1.8-7.7); BASOPHIL # 0.1 TH/MM3 (0-0.2); BASOPHIL % 0.6 % (0.0-2.0); HEMATOCRIT 31.5 % (35.0-46.0); LYMPH % 6.3 % (9.0-44.0); MEAN CELL VOLUME 88.1 FL (80.0-100.0); MEAN CORPUSCULAR HGB CONC 34.1 % (32.0-36.0); MONO % 11.2 % (0.0-8.0); NEUT % 81.9 % (16.0-70.0); PLATELET COUNT 354 TH/MM3 (150-450); RED BLOOD COUNT 3.58 MIL/MM3 (4.00-5.30); WHITE BLOOD COUNT 16.6 TH/MM3 (4.0-11.0)
[2016-10-05 00:57] LABS: HEMO FLAGS AUTO DIFF
[2016-10-05 01:02] LABS: APTT (PATIENT) 39.6 SEC (24.3-30.1); INTERNATIONAL NORMALIZED RATIO 3.3 RATIO
--- NOTE | 2016-10-05 01:11 | RADRPT ---
EXAM DATE/TIME: 10/05/2016 00:57 [facility] COMPARISON: FOOT RIGHT COMPLETE ([id number]), October 05, 2016, 0:57. INDICATIONS : Increasing not traumatic bilateral lower extremity pain and weakness from the hips to the feet for se veral weeks MEDICAL HISTORY : Hypertension. Carcinoma, colon. Hiatal hernia. SURGICAL HISTORY : Colostomy. ENCOUNTER: Initial ACUITY: 1 month PAIN SCORE: 10/10 LOCATION: Bilateral lower extremities FINDINGS: Three view examination of the left foot demonstrates no soft tissue swelling, dislocation, or fractur e. The tarsal bones appear intact. The interphalangeal and metatarsophalangeal joints are intact. The calcaneus is intact. Bony mineralization is decreased. CONCLUSION: No acute disease. Ziyad De La Cruz MD on October 05, 2016 at 1:10 Board Certified Radiologist. This report was verified electronically.
--- NOTE | 2016-10-05 01:11 | RADRPT ---
EXAM DATE/TIME: 10/05/2016 00:57 [facility] COMPARISON: FOOT LEFT COMPLETE ([id number]), October 05, 2016, 0:57. INDICATIONS : Increasing not traumatic bilateral lower extremity pain and weakness from the hips to the feet for se veral weeks. MEDICAL HISTORY : Hypertension. Hiatal hernia. Carcinoma, colon. SURGICAL HISTORY : Colostomy. ENCOUNTER: Initial ACUITY: 1 month PAIN SCORE: 10/10 LOCATION: Bilateral lower extremities. FINDINGS: Three view examination of the right foot demonstrates no soft tissue swelling, dislocation, or fractu re. The tarsal bones appear intact. The interphalangeal and metatarsophalangeal joints are intact. The calcaneus is intact. Bony mineralization is decreased. CONCLUSION: No acute disease. Ziyad De La Cruz MD on October 05, 2016 at 1:10 Board Certified Radiologist. This report was verified electronically.
[2016-10-05 01:18] LABS: ANION GAP 8 MEQ/L (5-15); BICARBONATE 31.3 MEQ/L (21.0-32.0); BLOOD UREA NITROGEN 12 MG/DL (7-18); CHLORIDE 100 MEQ/L (98-107); GLOMERULAR FILTRATION RATE 47 ML/MIN (>89); MAGNESIUM 1.2 MG/DL (1.5-2.5); POTASSIUM 3.2 MEQ/L (3.5-5.1); SODIUM (NA) 139 MEQ/L (136-145)
--- NOTE | 2016-10-05 01:49 | PD ---
HPI Chief Complaint: Pain: Acute or Chronic Time Seen by Provider: 23:59 Travel History International Travel<30 days: No Contact w/Intl Traveler<30days: No Traveled to known affect area: No History of Present Illness HPI The patient is 76 years old when she complains of pain in the feet for 2 weeks. Pain is located primarily about the dorsum of the feet. Pain is equal bilaterally. It's worse with palpation. She denies trauma. She arrives here by EMS having called them for foot pain. No chest pain. No SOB. She lives with her younger sister in a private house. 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 ) Cardiovascular Problems: Yes (afib) Cerebrovascular Accident: Yes Coronary Artery Disease: Yes Diabetes: No Endocrine: No Genitourinary: No Hepatitis: No Hiatal Hernia: Yes Hypertension: Yes Immune Disorder: No Musculoskeletal: No Neurologic: No Psychiatric: No Reproductive: No Respiratory: No Immunizations Current: No (pt refuses flue shot) Thyroid Disease: No Triglycerides - High: Yes Menopausal: Yes Past Surgical History Abdominal Surgery: No AICD: No Cardiac Surgery: Yes (r endartectomy) Ear Surgery: No Eye Surgery: Yes (CATARACTS BILAT) Genitourinary Surgery: No Gynecologic Surgery: No Joint Replacement: No Oral Surgery: No Pacemaker: No Thoracic Surgery: No Other Surgery: Yes (carotic endarterectomy, section of colon removed) Social History Alcohol Use: No Tobacco Use: No Substance Use: No Allergies-Medications (Allergen,Severity, Reaction): Coded Allergies: Sulfa (Verified Allergy, Severe, Hives, 10/05/16) Aspirin (Verified Allergy, Unknown, 10/05/16) Reported Meds & Prescriptions Reported Meds & Active Scripts Active Azithromycin 250 Mg Tab 250 Mg PO DIRECTED Take 2 tabs (500 mg) on day 1 then 1 tab daily x 4 days. Mucinex ER 12 HR (Guaifenesin) 600 Mg Reyna 600 Mg PO BID Reported Omeprazole 20 Mg Cap 20 Mg PO DAILY Diltiazem CD 24 HR 240 Mg Caper 240 Mg PO DAILY Lipitor (Atorvastatin Calcium) 80 Mg Tab 80 Mg PO HS Eliquis (Apixaban) 5 Mg Tab 10 Mg PO BID Metoprolol Tartrate 100 Mg Tab 100 Mg PO TID Review of Systems Except as stated in HPI: all other systems reviewed are Neg General / Constitutional: No: Fever, Chills Physical Exam Narrative GENERAL: 76-year-old female pleasant well-nourished well-developed SKIN: Warm and dry. HEAD: Atraumatic. Normocephalic. EYES: Pupils equal and round. No scleral icterus. No injection or drainage. ENT: No nasal bleeding or discharge. Mucous membranes pink and moist. NECK: Trachea midline. No JVD. CARDIOVASCULAR: Regular rate and rhythm. No murmur appreciated. RESPIRATORY: No accessory muscle use. Clear to auscultation. Breath sounds equal bilaterally. GASTROINTESTINAL: Abdomen soft, non-tender, nondistended. Hepatic and splenic margins not palpable. MUSCULOSKELETAL: No obvious deformities. No clubbing. No cyanosis. No edema. 2+ dorsalis pedis bilaterally. Minimal tenderness to palpation about the dorsal feet. NEUROLOGICAL: Awake and alert. No obvious cranial nerve deficits. Motor grossly within normal limits. Normal speech. PSYCHIATRIC: Appropriate mood and affect; insight and judgment normal. Data Data Last Documented VS Vital Signs Date Time Temp Pulse Resp B/P Pulse Ox O2 Delivery O2 Flow Rate FiO2 10/05/16 03:09 93 14 100/52 99 Nasal Cannula 2 10/04/16 23:51 99.0 Orders Basic Metabolic Panel (Bmp) (10/05/16 00:04) Complete Blood Count With Diff (10/05/16 00:04) Magnesium (Mg) (10/05/16 00:04) Prothrombin Time / Inr (Pt) (10/05/16 00:04) Act Partial Throm Time (Ptt) (10/05/16 00:04) Ecg Monitoring (10/05/16 00:04) Iv Access Insert/Monitor (10/05/16 00:04) Oximetry (10/05/16 00:04) Oxygen Administration (10/05/16 00:04) Sodium Chloride 0.9% Flush (Ns Flush) (10/05/16 00:15) Troponin I (10/05/16 00:04) Diltiazem Inj (Cardizem Inj) (10/05/16 00:15) Foot, Complete ([id number]) (10/05/16 00:04) Foot, Complete ([id number]) (10/05/16 00:04) Morphine Inj (Morphine Inj) (10/05/16 00:15) Ondansetron Inj (Zofran Inj) (10/05/16 00:15) Magnesium Sulfate 1 Gm Premix (Magnesium (10/05/16 02:00) Potassium Chloride (Kcl) (10/05/16 02:00) Diltiazem Inj (Cardizem Inj) (10/05/16 02:15) Blood Culture (10/05/16 02:47) Chest, Single Ap (10/05/16 02:47) Urinalysis - C+S If Indicated (10/05/16 02:47) Sodium Chlor 0.9% 1000 Ml Inj (Ns 1000 M (10/05/16 03:00) Admit Order (Ed Use Only) (10/05/16 03:51) Labs Laboratory Tests Test 10/05/16 00:20 White Blood Count 16.6 TH/MM3 Red Blood Count 3.58 MIL/MM3 Hemoglobin 10.7 GM/DL Hematocrit 31.5 % Mean Corpuscular Volume 88.1 FL Mean Corpuscular Hemoglobin 30.0 PG Mean Corpuscular Hemoglobin 34.1 % Concent Red Cell Distribution Width 13.0 % Platelet Count 354 TH/MM3 Mean Platelet Volume 7.5 FL Neutrophils (%) (Auto) 81.9 % Lymphocytes (%) (Auto) 6.3 % Monocytes (%) (Auto) 11.2 % Eosinophils (%) (Auto) 0.0 % Basophils (%) (Auto) 0.6 % Neutrophils # (Auto) 13.6 TH/MM3 Lymphocytes # (Auto) 1.0 TH/MM3 Monocytes # (Auto) 1.9 TH/MM3 Eosinophils # (Auto) 0.0 TH/MM3 Basophils # (Auto) 0.1 TH/MM3 CBC Comment AUTO DIFF Differential Comment AUTO DIFF CONFIRMED Ovalocytes 1+ Prothrombin Time 38.0 SEC Prothromb Time International 3.3 RATIO Ratio Activated Partial 39.6 SEC Thromboplast Time Sodium Level 139 MEQ/L Potassium Level 3.2 MEQ/L Chloride Level 100 MEQ/L Carbon Dioxide Level 31.3 MEQ/L Anion Gap 8 MEQ/L Blood Urea Nitrogen 12 MG/DL Creatinine 1.12 MG/DL Estimat Glomerular Filtration 47 ML/MIN Rate Random Glucose 134 MG/DL Calcium Level 8.4 MG/DL Magnesium Level 1.2 MG/DL Troponin I LESS THAN 0.02 NG/ML MDM Medical Decision Making Medical Screen Exam Complete: Yes Emergency Medical Condition: Yes Medical Record Reviewed: Yes Differential Diagnosis Fracture, arterial occlusion, DVT, neuropathy, arthritis Narrative Course CBC & BMP Diagram 10/05/16 00:20 Mg 1.2 Tn < 0.02 EKG reveals afib with RVR approx 130 INR 3.3 Last 24 hours Impressions Chest X-Ray 10/05/16 0247 Signed Impressions: Service Date/Time: Wednesday, October 05, 2016 02:59 - CONCLUSION: No acute disease. Ziyad De La Cruz MD Foot X-Ray 10/05/16 0004 Signed Impressions: Service Date/Time: Wednesday, October 05, 2016 00:57 - CONCLUSION: No acute disease. Ziyad De La Cruz MD Foot X-Ray 10/05/16 0004 Signed Impressions: Service Date/Time: Wednesday, October 05, 2016 00:57 - CONCLUSION: No acute disease. Ziyad De La Cruz MD Patient will be admitted for electrolyte replenishment and monitoring. Etiology of the foot pain is unclear however with an INR 3.3 venous thrombosis is considered unlikely. There is 2+ dorsalis pedis bilaterally with brisk capillary refill. There is no evidence of trauma or cellulitis. She has hypomagnesemia 1.2 as well as A. fib with RVR with runs into the 140s. She has received diltiazem twice, 20 mg each time. Heart rate has remained at about 80- 90 after the second dose. Diagnosis Primary Impression: Foot pain Qualified Code: M79.671 - Pain in both feet Additional Impressions: Hypomagnesemia Hypokalemia A-fib Qualified Code: I48.0 - Paroxysmal atrial fibrillation Admitting Information Admitting Physician Requests: Observation Additional Instructions: You have a choice when it comes to health care, and we are glad that you chose [facility]. Hopefully, we have met your expectations on today's visit. You are welcome to return to [facility] at any time, as we are committed to meeting the health care needs of our community. Tim Jiang MD Oct 05, 2016 01:49
[2016-10-05 02:00] LABS: OVALOCYTES 1+ (NORMAL); SCAN/DIFF AUTO DIFF CONFIRMED
[2016-10-05] MEDS ORDERED: POTASSIUM CHLORIDE 20 MEQ CONTROLLED RELEASE TAB PO ONE (02:00)
[2016-10-05] MEDS ORDERED: MAGNESIUM SULFATE 1 GM PREMIX 100 ML IV ONE ×2 (02:00→07:30)
[2016-10-05] MEDS ORDERED: SODIUM CHLOR 0.9% 1000 ML INJ 1,000 ML IV ONE (03:00)
--- NOTE | 2016-10-05 03:11 | RADRPT ---
EXAM DATE/TIME: 10/05/2016 02:59 [facility] COMPARISON: CHEST SINGLE AP, September 25, 2016, 6:06. INDICATIONS : Evaluate fever and shortness of breath. MEDICAL HISTORY : Hypertension. Hiatal hernia. skin cancer, colorectal cancer SURGICAL HISTORY : None available. ENCOUNTER: Initial ACUITY: 1 day PAIN SCORE: 7/10 LOCATION: Bilateral chest FINDINGS: Cardiomegaly. Aortic calcification. No consolidation or effusion. Degenerative changes of the spine. CONCLUSION: No acute disease. Ziyad De La Cruz MD on October 05, 2016 at 3:09 Board Certified Radiologist. This report was verified electronically.
[2016-10-05] MEDS ORDERED: ACETAMINOPHEN 325 MG TAB PO PRN (04:00)
[2016-10-05] MEDS ORDERED: BISACODYL 10 MG SUPP PR PRN (04:00)
[2016-10-05] MEDS ORDERED: SODIUM CHLORIDE 0.9% FLUSH 5 ML FLUSH FLUSH PRN (04:00)
[2016-10-05] MEDS ORDERED: ONDANSETRON HCL 4 MG/2 ML VIAL IVP PRN (04:00)
[2016-10-05] MEDS ORDERED: MORPHINE SULFATE 4 MG/ML INJ IV PRN (04:00)
[2016-10-05] MEDS ORDERED: ACETAMINOPHEN/HYDROcodone 325 MG/5 MG TAB PO PRN (04:00)
--- NOTE | 2016-10-05 04:53 | HHI.HP ---
[facility] Service [facility] Physician Non-Staff Admission Diagnosis AFib, HypoMg, HypoK Diagnoses: (1) A-fib Diagnosis: Principal (2) Hypokalemia Diagnosis: Principal (3) Hypomagnesemia Diagnosis: Principal (4) Renal insufficiency Diagnosis: Principal (5) Leukocytosis Diagnosis: Principal (6) Foot pain Diagnosis: Principal Travel History International Travel<30 Days: No Contact w/Intl Traveler <30 Da: No Traveled to Known Affected Are: No History of Present Illness This is a 76-year-old female with a PMH of A. fib on Eliquis, HTN, Hyperlipidemia and Anxiety who was brought to the ER by EMS secondary to complaints of bilateral foot pain x2 wks. Denies recent injury or trauma. Recent admit 09/25-09/27/16 for Sepsis from PNA s/p IV Rocephin/Zithro and d/c'd w / Zithro x5 days. Denies fever, chills, edema or redness to bilateral lower extremities. On arrival, BP 170/92, HR 126, O2 sat 96% on RA, Temp 99.0. Noted to be in A. fib with RVR on arrival. S/p Cardizem x2 IV w/ HR now maintained in the 80's. WBC 16.6. Creatinine 1.12, previously 0.76 on . K+ 3.2. U/a pending. CXR w/ no acute findings. Bilateral Foot X-rays negative for acute findings. Review of Systems Other ROS: 14 point review of systems otherwise negative. Past Family Social History Past Medical History PMH: A. fib on Eliquis, HTN, Hyperlipidemia and Anxiety Past Surgical History PAST SURGICAL HISTORY: Right Endarterectomy, Cataract Surgery, Partial Colectomy Allergies: Coded Allergies: Sulfa (Verified Allergy, Severe, Hives, 10/05/16) Aspirin (Verified Allergy, Unknown, 10/05/16) Family History PAST FAMILY HISTORY: Reviewed. No h/o DM or CAD Social History PAST SOCIAL HISTORY: Negative for alcohol, tobacco or drugs. Physical Exam Vital Signs Vital Signs Date Time Temp Pulse Resp B/P Pulse Ox O2 Delivery O2 Flow Rate FiO2 10/05/16 03:09 93 14 100/52 99 Nasal Cannula 2 10/05/16 00:22 100 Nasal Cannula 2 10/04/16 23:51 99.0 126 18 170/92 96 Physical Exam PE: GENERAL: Elderly female in no acute distress. HEENT: PERRLA, EOMI. No scleral icterus or conjunctival pallor. No lid lag or facial droop. CARDIOVASCULAR: Irregularly irregular, in A. fib. No obvious murmurs to auscultation. No chest tenderness to palpation. RESPIRATORY: No obvious rhonchi or wheezing. Clear to auscultation. Breath sounds equal bilaterally. GASTROINTESTINAL: Abdomen soft, non-tender, nondistended. BS normal. MUSCULOSKELETAL: Extremities without clubbing, cyanosis, or edema. No obvious deformities. NEUROLOGICAL: Awake, alert and oriented x4. No focal neurologic deficits. Moving both upper and lower extremities spontaneously. Laboratory Laboratory Tests Test 10/05/16 00:20 White Blood Count 16.6 Red Blood Count 3.58 Hemoglobin 10.7 Hematocrit 31.5 Mean Corpuscular Volume 88.1 Mean Corpuscular Hemoglobin 30.0 Mean Corpuscular Hemoglobin 34.1 Concent Red Cell Distribution Width 13.0 Platelet Count 354 Mean Platelet Volume 7.5 Neutrophils (%) (Auto) 81.9 Lymphocytes (%) (Auto) 6.3 Monocytes (%) (Auto) 11.2 Eosinophils (%) (Auto) 0.0 Basophils (%) (Auto) 0.6 Neutrophils # (Auto) 13.6 Lymphocytes # (Auto) 1.0 Monocytes # (Auto) 1.9 Eosinophils # (Auto) 0.0 Basophils # (Auto) 0.1 CBC Comment AUTO DIFF Differential Comment AUTO DIFF CONFIRMED Ovalocytes 1+ Prothrombin Time 38.0 Prothromb Time International 3.3 Ratio Activated Partial 39.6 Thromboplast Time Sodium Level 139 Potassium Level 3.2 Chloride Level 100 Carbon Dioxide Level 31.3 Anion Gap 8 Blood Urea Nitrogen 12 Creatinine 1.12 Estimat Glomerular Filtration 47 Rate Random Glucose 134 Calcium Level 8.4 Magnesium Level 1.2 Troponin I LESS THAN 0.02 Date/Time Procedure Status Source Growth 10/05/16 03:05 Aerobic Blood Culture Received Blood Peripheral Pending 10/05/16 03:05 Anaerobic Blood Culture Received Blood Peripheral Pending Result Diagram: 10/05/16 0020 10/05/16 0020 Assessment and Plan Problem List: (1) A-fib ICD Code: I48.91 Status: Acute (2) Hypomagnesemia ICD Code: E83.42 Status: Acute (3) Hypokalemia ICD Code: E87.6 Status: Acute (4) Renal insufficiency ICD Code: N28.9 Status: Acute (5) Leukocytosis ICD Code: D72.829 Status: Acute (6) Foot pain ICD Code: M79.673 Status: Acute Assessment and Plan A/P: 1. A-fib: w/ RVR on arrival, HR 140's s/p Cardizem IV x2 doses in ER, HR now maintained 80-90's. IVF for hydration. Resume home Metoprolol and Cardizem in addition to Eliquis. 2. Hypokalemia: K+ 3.2, s/p replacement in ER. Will recheck and replace as needed. 3. Hypomagnesemia: Mg 1.2, s/p replacement. Recheck labs in am, replace if needed. 4. Renal Insufficiency: Creatinine 1.12, previously 0.76 on 09/27/16. U/a pending. IVF for hydration, repeat labs in am. 5. Leukocytosis: WBC 16. Temp 99.0. Recent admit for PNA/Sepsis 09/25-. CXR w/ no acute findings. Pending U/a. Blood Cultures x2 in ER, will follow up cultures. 6. Foot Pain: No injury/trauma, no erythema, no edema, pulses intact. Foot X- rays negative bilaterally, images reviewed by me. 7. DVT Prophylaxis: On Eliquis 8. Social work for d/c planning as needed. 9. Case discussed w/ ER physician at length. Kathy Barnett MD Oct 05, 2016 04:53
[2016-10-05] MEDS: SODIUM CHLOR 0.9% 1000 ML INJ 1,000 ML IV SCH ×3 (05:59→23:53)
[2016-10-05] MEDS: guaiFENesin E.R. 600 MG TAB PO SCH ×2 (08:56→21:00)
[2016-10-05] MEDS: METOPROLOL TARTRATE 100 MG TAB PO SCH ×3 (08:56→18:00)
[2016-10-05] MEDS: DILTIAZEM-CD 240 MG CAP ER PO SCH (08:56)
[2016-10-05] MEDS: APIXABAN 5 MG TABLET PO SCH ×2 (08:57→21:00)
[2016-10-05] MEDS: PANTOPRAZOLE SOD 20 MG DELAYED RELEASE TAB PO SCH (08:57)
[2016-10-05] MEDS: SODIUM CHLORIDE 0.9% FLUSH 5 ML FLUSH FLUSH SCH ×2 (09:00→21:00)
--- NOTE | 2016-10-05 10:12 | HHI.PR ---
Subjective Remarks Follow up for feet/leg pain and Afib with RVR. The patient reports continued bilateral feet and leg pain. She states she had this 20 years ago and it finally went away on its own at that time. However now the pain is worse. She states she cannot ambulate because of the pain. 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 Her heart rate has been in the 70s-80s throughout the night. She reports compliance with all medications including Eliquis, Diltiazem, and Metoprolol. Her sales service route manager is Dr. Orellana. Objective Vitals Vital Signs Date Time Temp Pulse Resp B/P Pulse Ox O2 Delivery O2 Flow Rate FiO2 10/05/16 07:31 97.8 89 17 99/51 98 10/05/16 05:11 105 10/05/16 04:50 98.4 97 19 130/57 96 10/05/16 03:09 93 14 100/52 99 Nasal Cannula 2 10/05/16 00:22 100 Nasal Cannula 2 10/04/16 23:51 99.0 126 18 170/92 96 Result Diagram: 10/05/16 0020 10/05/16 0020 Imaging Last Impressions Chest X-Ray 10/05/16 0247 Signed Impressions: Service Date/Time: Wednesday, October 05, 2016 02:59 - CONCLUSION: No acute disease. Ziyad De La Cruz MD Foot X-Ray 10/05/16 0004 Signed Impressions: Service Date/Time: Wednesday, October 05, 2016 00:57 - CONCLUSION: No acute disease. Ziyad De La Cruz MD Objective Remarks GENERAL: Well-nourished, well-developed elderly female patient in [facility]. SKIN: Warm and dry. No rash. HEAD: Normocephalic. Atraumatic. EYES: Pupils equal and round. No scleral icterus. No injection or drainage. ENT: No nasal bleeding or discharge. Mucous membranes pink and moist. NECK: Supple. Trachea midline. CARDIOVASCULAR: Irregularly irregular rate and rhythm. S1, S2 noted. No murmur appreciated. RESPIRATORY: No accessory muscle use. Clear to auscultation. Breath sounds equal bilaterally. GASTROINTESTINAL: Abdomen soft, non-tender, nondistended. Normoactive bowel sounds x4. MUSCULOSKELETAL: No obvious deformities. Extremities without clubbing, cyanosis , or edema. Bilateral feet diffusely TTP, worse at the dorsum of the right foot. No calf swelling/tenderness. NEUROLOGICAL: Awake and alert. No obvious cranial nerve deficits. Motor grossly within normal limits. 5/5 muscle strength in bilateral upper and lower extremities. Normal speech. PSYCHIATRIC: Appropriate mood and affect; insight and judgment normal. Medications and IVs Current Medications Medications (Trade) Dose Ordered Sig/Marti Route Start Time Stop Time Status Last Admin (NS 1000 ml Inj) 1,000 ml @ 100 mls/hr Q10H IV 10/05/16 03:53 10/05/16 05:59 (NS Flush) 2 ml UNSCH PRN FLUSH 10/05/16 04:00 (NS Flush) 2 ml BID FLUSH 10/05/16 09:00 (Zofran Inj) 4 mg Q6H PRN IVP 10/05/16 04:00 (Dulcolax Supp) 10 mg DAILY PRN [place] 10/05/16 04:00 (Tylenol) 650 mg Q6H PRN PO 10/05/16 04:00 ([place] 5-325 Mg) 1 tab Q4H PRN PO 10/05/16 04:00 (Morphine Inj) 2 mg Q3H PRN IV 10/05/16 04:00 (Eliquis) 10 mg BID PO 10/05/16 09:00 10/05/16 08:57 (Lipitor) 80 mg HS PO 10/05/16 21:00 (Cardizem Cd) 240 mg DAILY PO 10/05/16 09:00 10/05/16 08:56 (Mucinex Er) 600 mg BID PO 10/05/16 09:00 10/05/16 08:56 (Lopressor) 100 mg TID PO 10/05/16 09:00 10/05/16 08:56 (Protonix) 20 mg DAILY PO 10/05/16 09:00 10/05/16 08:57 Urinary Catheter: No Vascular Central Line Catheter: No A/P Problem List: (1) A-fib ICD Code: I48.91 Status: Acute (2) Hypomagnesemia ICD Code: E83.42 Status: Acute (3) Hypokalemia ICD Code: E87.6 Status: Acute (4) Renal insufficiency ICD Code: N28.9 Status: Acute (5) Leukocytosis ICD Code: D72.829 Status: Acute (6) Foot pain ICD Code: M79.673 Status: Acute Assessment and Plan 76-year-old female with a PMH of A. fib on Eliquis, HTN, Hyperlipidemia and Anxiety who was brought to the ER by EMS secondary to complaints of bilateral foot pain x2 wks. A-fib: w/ RVR on arrival, HR 140's s/p Cardizem IV x2 doses in ER, HR now maintained 80-90's. IVF for hydration. Resume home Metoprolol 100mg tid and Cardizem 240mg daily in addition to Eliquis. Monitor on telemetry. Bilateral Feet/Leg Pain: unclear etiology, possible neuropathy, possible cramping related to electrolyte abnormalities. No injury/trauma, no erythema, no edema, pulses intact. Foot X-rays negative bilaterally, images reviewed by me. Check Doppler U/S although unlikely DVT while on Eliquis. Consult PT. Hypokalemia: K+ 3.2, s/p replacement in ER. Recheck and replace as needed. Hypomagnesemia: Mg 1.2, s/p replacement. Recheck labs today, replace if needed. Renal Insufficiency: Creatinine 1.12, previously 0.76 on 09/27/16. U/a pending. IVF for hydration, repeat labs today pending. Leukocytosis: WBC 16K. Temp 99.0. Recent admit for PNA/Sepsis 09/25-09/27/16. CXR w/ no acute findings. Pending U/a. Blood Cultures x2 in ER, will follow up cultures. DVT Prophylaxis: on Eliquis Written by Elana Dang, acting as scribe for Dr. Huerta on 10/05/16 at 10:10. The documentation accurately reflects the work performed [id number] by me Dr. Huerta on 10/05/16 at 10:10. Problem Qualifiers (1) A-fib: Qualified Code: I48.0 - Paroxysmal atrial fibrillation (2) Foot pain: Qualified Code: M79.671 - Pain in both feet Elana Dang PA-C Oct 05, 2016 10:12 Lesley Huerta MD Oct 05, 2016 14:30
[2016-10-05 11:04] LABS: AUTOMATED NEUTROPHIL # 9.1 TH/MM3 (1.8-7.7); BASOPHIL # 0.1 TH/MM3 (0-0.2); BASOPHIL % 0.7 % (0.0-2.0); EOSINOPHIL % 0.1 % (0.0-4.0); HEMATOCRIT 31.9 % (35.0-46.0); HEMO FLAGS DIFF FINAL; LYMPH % 9.1 % (9.0-44.0); MEAN CELL VOLUME 88.4 FL (80.0-100.0); MEAN CORPUSCULAR HEMOGLOBIN 29.5 PG (27.0-34.0); MEAN CORPUSCULAR HGB CONC 33.4 % (32.0-36.0); MONO % 11.5 % (0.0-8.0); NEUT % 78.6 % (16.0-70.0); PLATELET COUNT 299 TH/MM3 (150-450); RED BLOOD COUNT 3.61 MIL/MM3 (4.00-5.30); WHITE BLOOD COUNT 11.6 TH/MM3 (4.0-11.0)
[2016-10-05 11:41] LABS: BICARBONATE 30.5 MEQ/L (21.0-32.0); MAGNESIUM 2.2 MG/DL (1.5-2.5); POTASSIUM 3.6 MEQ/L (3.5-5.1)
[2016-10-05 11:55] LABS: CREATINE KINASE 62 U/L (26-192)
--- NOTE | 2016-10-05 17:07 | RADRPT ---
EXAM DATE/TIME: 10/05/2016 15:42 [place] COMPARISON: No previous studies available for comparison. EXTERNAL COMPARISON : [facility], US LEG, RIGHT VENOUS DOPPLER, June 25, 2016 INDICATIONS : Bilateral leg pain. MEDICAL HISTORY : Hypertension. Carcinoma, colon. Cerebrovascular accident. Afib. Coronary artery disease. Anticoagula nt therapy. Hyperlipidemia. Hiatal hernia. Anxiety. Skin cancer on face. SURGICAL HISTORY : Carotid endarterectomy.Tonsillectomy. Colon resection.Skin cancer removal on face. Right knee surgery . Bilateral cataract removal. ENCOUNTER: Initial ACUITY: 1 day PAIN SCORE: 4/10 LOCATION: Bilateral legs. TECHNIQUE: Venous ultrasound of the left and right leg was performed from the inguinal ligament to the proximal calf. Real-time, color Doppler and spectral tracing, compression and augmentation techniques were us ed. FINDINGS: RIGHT LEG: There is normal compressibility of the deep venous system from the inguinal region to the proximal ca lf. No echogenic clot is seen in the lumen of the common femoral, femoral, popliteal, and posterior tibial veins. There is a normal response of the venous system to proximal and distal augmentation an d respiration. LEFT LEG: There is normal compressibility of the deep venous system from the inguinal region to the proximal ca lf. No echogenic clot is seen in the lumen of the common femoral, femoral, popliteal, and posterior tibial veins. There is a normal response of the venous system to proximal and distal augmentation an d respiration. Cyst in the popliteal fossa without peripheral flow on color Doppler, measuring 4.6 x 1.1 x 2.5 cm. CONCLUSION: The study is negative for deep venous thrombosis bilateral lower extremity. Ace Wagoner MD on October 05, 2016 at 17:04 Board Certified Radiologist. This report was verified electronically.
[2016-10-05 18:22] LABS: BLOOD, URINE NEG (NEG); GLUCOSE,URINE NEG (NEG); GRANULAR CAST, URINE 4 /lpf; HYALINE CAST, URINE 29 /lpf (RARE); KETONE, URINE NEG (NEG); MUCUS URINE FEW /lpf (OCC); NITRITE,URINE NEG (NEG); SQUAMOUS EPITHELIAL CELL URINE 3 /hpf (0-5); URINE COLOR YELLOW (YELLW/STRAW)
[2016-10-05 18:23] LABS: COMMENT (UR) CATH-CULT NOT IND; CULTURE IF INDICATED CATH CULTURE NOT IND
[2016-10-05] MEDS: ATORVASTATIN 80 MG TAB PO SCH (21:00)
[2016-10-06] VITALS (10 sets, daily range): BP systolic 97–151; BP diastolic 50–82; PULSE 67–115; RESP 16–21; TEMP 97.4–98.7; O2SAT 91–97
[2016-10-06 03:59] LABS: AUTOMATED NEUTROPHIL # 11.2 TH/MM3 (1.8-7.7); BASOPHIL # 0.1 TH/MM3 (0-0.2); BASOPHIL % 0.7 % (0.0-2.0); EOSINOPHIL % 0.1 % (0.0-4.0); HEMATOCRIT 33.9 % (35.0-46.0); HEMO FLAGS DIFF FINAL; LYMPH % 6.2 % (9.0-44.0); LYMPHOCYTE # 0.8 TH/MM3 (1.0-4.8); MEAN CORPUSCULAR HEMOGLOBIN 29.2 PG (27.0-34.0); MEAN CORPUSCULAR HGB CONC 32.8 % (32.0-36.0); MONO % 8.6 % (0.0-8.0); NEUT % 84.4 % (16.0-70.0); PLATELET COUNT 315 TH/MM3 (150-450); RED CELL DISTRIBUTION WIDTH 13.1 % (11.6-17.2); WHITE BLOOD COUNT 13.3 TH/MM3 (4.0-11.0)
[2016-10-06 04:17] LABS: ALKALINE PHOSPHATASE 101 U/L (45-117); ALT (GPT) 30 U/L (10-53); ANION GAP 6 MEQ/L (5-15); AST (GOT) 42 U/L (15-37); BICARBONATE 28.7 MEQ/L (21.0-32.0); BLOOD UREA NITROGEN 13 MG/DL (7-18); CHLORIDE 103 MEQ/L (98-107); GLOMERULAR FILTRATION RATE 53 ML/MIN (>89); POTASSIUM 4.3 MEQ/L (3.5-5.1); SODIUM (NA) 138 MEQ/L (136-145); TOTAL BILIRUBIN ADULT 0.7 MG/DL (0.2-1.0)
[2016-10-06] MEDS: DILTIAZEM-CD 240 MG CAP ER PO SCH (09:00)
[2016-10-06] MEDS: METOPROLOL TARTRATE 100 MG TAB PO SCH ×3 (09:00→18:00)
[2016-10-06] MEDS: SODIUM CHLORIDE 0.9% FLUSH 5 ML FLUSH FLUSH SCH ×2 (09:00→20:16)
[2016-10-06] MEDS: PANTOPRAZOLE SOD 20 MG DELAYED RELEASE TAB PO SCH (09:00)
[2016-10-06] MEDS: guaiFENesin E.R. 600 MG TAB PO SCH ×2 (09:00→20:16)
[2016-10-06] MEDS: APIXABAN 5 MG TABLET PO SCH ×2 (09:00→20:16)
[2016-10-06] MEDS: SODIUM CHLOR 0.9% 1000 ML INJ 1,000 ML IV SCH ×2 (09:53→19:53)
--- NOTE | 2016-10-06 11:10 | HHI.PR ---
Subjective Remarks Follow up for bilateral feet/leg pain and afib with RVR. The patient reports feeling much better today, no pain while lying in bed, however does have pain with ambulation and she does not believe she would be able to walk. She agrees to going to rehab if offered. Discussed starting on Lyrica for the feet pain however she would like to talk to her heading and priming operator about this first. Also, her heart rate was mostly in the 80s overnight however now up into the 120s on telemetry even while patient was sleeping upon our arrival. She denies any chest pain, palpitations, or shortness of breath. Objective Vitals Vital Signs Date Time Temp Pulse Resp B/P Pulse Ox O2 Delivery O2 Flow Rate FiO2 10/06/16 07:58 97.4 106 17 151/75 96 10/06/16 04:33 67 10/06/16 04:00 97.8 87 21 127/78 97 10/06/16 00:15 98.0 67 18 124/58 97 10/05/16 23:22 22 10/05/16 20:00 96.7 80 20 125/66 96 10/05/16 16:30 97.8 85 20 126/58 95 10/05/16 12:57 98.0 87 17 101/50 94 I/O 10/05/16 10/05/16 10/05/16 10/06/16 10/06/16 10/06/16 07:00 15:00 23:00 07:00 15:00 23:00 Intake Total 600 ml Balance 600 ml Intake Oral 600 ml # Voids 1 5 # Bowel Movements 0 Result Diagram: 10/06/16 0330 10/06/16 0330 Imaging Last Impressions Chest X-Ray 10/05/16 0247 Signed Impressions: Service Date/Time: Wednesday, October 05, 2016 02:59 - CONCLUSION: No acute disease. Ziyad De La Cruz MD Foot X-Ray 10/05/16 0004 Signed Impressions: Service Date/Time: Wednesday, October 05, 2016 00:57 - CONCLUSION: No acute disease. Ziyad De La Cruz MD Lower Extremity Ultrasound 10/05/16 0000 Signed Impressions: Service Date/Time: Wednesday, October 05, 2016 15:42 - CONCLUSION: The study is negative for deep venous thrombosis bilateral lower extremity. Ace Wagoner MD Objective Remarks GENERAL: Well-nourished, well-developed elderly female patient in [facility]. SKIN: Warm and dry. No rash. HEAD: Normocephalic. Atraumatic. NECK: Supple. Trachea midline. CARDIOVASCULAR: Irregularly irregular rate and rhythm. S1, S2 noted. No murmur appreciated. RESPIRATORY: No accessory muscle use. Clear to auscultation. Breath sounds equal bilaterally. GASTROINTESTINAL: Abdomen soft, non-tender, nondistended. Normoactive bowel sounds x4. MUSCULOSKELETAL: No obvious deformities. Extremities without clubbing, cyanosis , or edema. Bilaterally feet nontender today. No calf swelling/tenderness. NEUROLOGICAL: Awake and alert. No obvious cranial nerve deficits. Motor grossly within normal limits. 5/5 muscle strength in bilateral upper and lower extremities. Normal speech. PSYCHIATRIC: Appropriate mood and affect; insight and judgment normal. Medications and IVs Current Medications Medications (Trade) Dose Ordered Sig/Marti Route Start Time Stop Time Status Last Admin (NS 1000 ml Inj) 1,000 ml @ 100 mls/hr Q10H IV 10/05/16 03:53 10/05/16 23:53 (NS Flush) 2 ml UNSCH PRN FLUSH 10/05/16 04:00 (NS Flush) 2 ml BID FLUSH 10/05/16 09:00 10/05/16 21:00 (Zofran Inj) 4 mg Q6H PRN IVP 10/05/16 04:00 (Dulcolax Supp) 10 mg DAILY PRN [place] 10/05/16 04:00 (Tylenol) 650 mg Q6H PRN PO 10/05/16 04:00 ([place] 5-325 Mg) 1 tab Q4H PRN PO 10/05/16 04:00 10/05/16 22:16 (Morphine Inj) 2 mg Q3H PRN IV 10/05/16 04:00 (Eliquis) 10 mg BID PO 10/05/16 09:00 10/06/16 09:00 (Lipitor) 80 mg HS PO 10/05/16 21:00 10/05/16 21:00 (Mucinex Er) 600 mg BID PO 10/05/16 09:00 10/06/16 09:00 (Lopressor) 100 mg TID PO 10/05/16 09:00 10/06/16 09:00 (Protonix) 20 mg DAILY PO 10/05/16 09:00 10/06/16 09:00 (Cardizem Cd) 300 mg DAILY PO 10/07/16 09:00 Urinary Catheter: No Vascular Central Line Catheter: No A/P Problem List: (1) A-fib ICD Code: I48.91 Status: Acute (2) Hypomagnesemia ICD Code: E83.42 Status: Acute (3) Hypokalemia ICD Code: E87.6 Status: Acute (4) Renal insufficiency ICD Code: N28.9 Status: Acute (5) Leukocytosis ICD Code: D72.829 Status: Acute (6) Foot pain ICD Code: M79.673 Status: Acute Assessment and Plan 76-year-old female with a PMH of A. fib on Eliquis, HTN, Hyperlipidemia and Anxiety who was brought to the ER by EMS secondary to complaints of bilateral foot pain x2 wks. A-fib: w/ RVR on arrival, HR 140's s/p Cardizem IV x2 doses in ER, HR now maintained 80-90's. IVF for hydration. Resumed home Metoprolol 100mg tid and Cardizem 240mg daily in addition to Eliquis. Monitor on telemetry. HR improved yesterday however now back into 120s-130s, consult patient's heading and priming operator Dr. Orellana. Admit to inpatient. Bilateral Feet/Leg Pain: unclear etiology, possible neuropathy, possible cramping related to electrolyte abnormalities. No injury/trauma, no erythema, no edema, pulses intact. Foot X-rays negative bilaterally, images reviewed by me. Checked Doppler U/S although unlikely DVT while on Eliquis; U/S negative. Consult PT, recommending rehab placement, patient agrees. Case management consulted. Hypokalemia: K+ 3.2, s/p replacement in ER. Repeat K 4.3 today. Resolved. Hypomagnesemia: Mg 1.2, s/p replacement. Repeat Mag 2.2. Resolved. Renal Insufficiency: Creatinine 1.12, previously 0.76 on 09/27/16. U/a unremarkable. IVF for hydration, repeat labs today show improvement, Cr 1.01. Leukocytosis: WBC 16K. Temp 99.0. Recent admit for PNA/Sepsis 09/25-09/27/16. CXR w/ no acute findings. U/a negative. Blood Cultures x2 with NGTD, will follow up cultures. DVT Prophylaxis: on Eliquis Written by Elana Dang, acting as scribe for Dr. Huerta on 10/06/16 at 11:10. The documentation accurately reflects the work performed [id number] by me Dr. Huerta on 10/06/16 at 11:10. Discharge Planning Admit to inpatient for Afib with RVR. Case management consult for rehab placement. Problem Qualifiers (1) A-fib: Qualified Code: I48.0 - Paroxysmal atrial fibrillation (2) Foot pain: Qualified Code: M79.671 - Pain in both feet Elana Dang PA-C Oct 06, 2016 11:10 Lesley Huerta MD Oct 06, 2016 14:59
--- NOTE | 2016-10-06 16:14 | MB ---
cc: OLE ORELLANA MD DATE OF CONSULTATION 10/06/2016 REASON FOR CONSULTATION The patient is a 76-year-old woman with a history of atrial fibrillation was admitted to the hospital after bilateral foot pain. She has been taken care of her sister. She has noted that she has become somewhat weaker over the past two weeks and had a fall two weeks ago. No loss of consciousness, palpitations, lightheadedness or dizziness has been present. She did develop foot pain and came to the emergency department and was found to have atrial fibrillation with rapid response. She has had a long history of chronic atrial fibrillation for which she has been maintained on 240 mg of diltiazem plus 100 mg of metoprolol three times daily for rate control, as well as Eliquis for thromboembolic protection. She was initially given some Cardizem IV with decrease in her heart rate but it has gone back up to 120. We do note that she has been on metoprolol 100 three times daily with 240 of Cardizem CD daily since her admission yesterday to the hospital. Laboratory exam is pertinent in that her potassium was 3.1 and it has subsequently been replaced. PAST MEDICAL HISTORY Has otherwise been unremarkable except for anxiety and hyperlipidemia. SOCIAL HISTORY The patient does not smoke, drink or use recreational drugs. ALLERGIES SULFA AND ASPIRIN. PHYSICAL EXAMINATION GENERAL: She is awake and alert, in no distress. VITAL SIGNS: Her heart rate is approximately 120-130, blood pressure is 160/70. NECK: There is no neck vein distention. LUNGS: Clear. CARDIOVASCULAR: Examination reveals a rapidly irregular rhythm with no significant murmur or gallop. ASSESSMENT The patient has had continued rapid ventricular response. Will increase her Cardizem to 300 mg daily and continue her metoprolol and Eliquis as is. Ole Orellana MD DLChris/KK /11:59 AM /4:04 PM
[2016-10-06] MEDS: ATORVASTATIN 80 MG TAB PO SCH (20:16)
[2016-10-07] MEDS ORDERED: METOPROLOL TARTRATE 50 MG TAB PO ONE ×2 (01:45→03:30)
[2016-10-07 03:31] VITALS: BP 148/87; PULSE 68; RESP 18; TEMP 98.8; O2SAT 86
[2016-10-07] MEDS: SODIUM CHLOR 0.9% 1000 ML INJ 1,000 ML IV SCH (07:13)
--- NOTE | 2016-10-07 07:53 | PD.CARD.PN ---
Subjective Subjective Remarks Resting comfortably Objective Vital Signs / I&O Vital Signs Date Time Temp Pulse Resp B/P Pulse Ox O2 Delivery O2 Flow Rate FiO2 10/07/16 03:31 98.8 68 18 148/87 86 10/06/16 23:48 98.6 113 16 139/65 91 10/06/16 21:14 105 10/06/16 19:34 98.7 104 18 137/69 93 10/06/16 18:00 101/55 10/06/16 15:44 98.2 69 18 97/50 94 10/06/16 12:06 98.4 115 20 138/82 95 10/06/16 07:58 97.4 106 17 151/75 96 Physical Exam Irregular with HR 120-130 Assessment and Plan Assessment and Plan Not sure why HR out of control despite large doses of metoprolol and diltiazem. Will check d-dimer and TSH. Add dig to regimen to try to slow rate. Ole Orellana MD, FACC Oct 07, 2016 07:53
[2016-10-07 07:55] VITALS: BP 166/97; PULSE 130; RESP 18; TEMP 98; O2SAT 96
[2016-10-07 08:18] VITALS: PULSE 124
[2016-10-07] MEDS: SODIUM CHLORIDE 0.9% FLUSH 5 ML FLUSH FLUSH SCH ×2 (08:40→20:51)
[2016-10-07] MEDS: DILTIAZEM-CD 300 MG CAP ER PO SCH (08:42)
[2016-10-07] MEDS: PANTOPRAZOLE SOD 20 MG DELAYED RELEASE TAB PO SCH (08:42)
[2016-10-07] MEDS: METOPROLOL TARTRATE 100 MG TAB PO SCH ×3 (08:42→17:34)
[2016-10-07] MEDS: APIXABAN 5 MG TABLET PO SCH ×2 (08:42→20:51)
[2016-10-07] MEDS: guaiFENesin E.R. 600 MG TAB PO SCH ×2 (08:42→20:51)
[2016-10-07] MEDS: DIGOXIN 0.25 MG TAB PO SCH ×3 (08:42→12:19)
[2016-10-07] MEDS ORDERED: MAGNESIUM HYDROXIDE SUSP 30 ML CUP PO ONE (09:30)
--- NOTE | 2016-10-07 09:32 | HHI.PR ---
Subjective Remarks Following for rapid atrial fibrillation and lower extremity pain. Patient states that she had chest palpitations radiating up into her neck last night. She denies any lower extremity pain while in bed here. She states the pain in her legs occurs whenever she moves around. She denies any chest pain, shortness breath, lightheadedness, weakness, nausea, sweats, vomiting. She does report some constipation. Objective Vitals Vital Signs Date Time Temp Pulse Resp B/P Pulse Ox O2 Delivery O2 Flow Rate FiO2 10/07/16 08:18 124 10/07/16 07:55 98.0 130 18 166/97 96 10/07/16 03:31 98.8 68 18 148/87 86 10/06/16 23:48 98.6 113 16 139/65 91 10/06/16 21:14 105 10/06/16 19:34 98.7 104 18 137/69 93 10/06/16 18:00 101/55 10/06/16 15:44 98.2 69 18 97/50 94 10/06/16 12:06 98.4 115 20 138/82 95 Result Diagram: 10/06/16 0330 10/06/16 0330 Imaging Last Impressions Chest X-Ray 10/05/16 0247 Signed Impressions: Service Date/Time: Wednesday, October 05, 2016 02:59 - CONCLUSION: No acute disease. Ziyad De La Cruz MD Foot X-Ray 10/05/16 0004 Signed Impressions: Service Date/Time: Wednesday, October 05, 2016 00:57 - CONCLUSION: No acute disease. Ziyad De La Cruz MD Lower Extremity Ultrasound 10/05/16 0000 Signed Impressions: Service Date/Time: Wednesday, October 05, 2016 15:42 - CONCLUSION: The study is negative for deep venous thrombosis bilateral lower extremity. Ace Wagoner MD Objective Remarks GENERAL: Well-developed well-nourished. In no acute distress. SKIN: Warm and dry. No lesions noted. HEENT: Normocephalic. Pupils equal and round. Mucous membranes pink and moist. CARDIOVASCULAR: Irregular rate and rhythm. No murmur appreciated. RESPIRATORY: No accessory muscle use. Clear to auscultation. Breath sounds equal bilaterally. GASTROINTESTINAL: Abdomen soft, non-tender, nondistended. Bowel sounds x4. MUSCULOSKELETAL: No obvious deformities. No clubbing or cyanosis. No edema. NEUROLOGICAL: Awake and alert. No focal neurological deficits. Moves upper and lower extremities spontaneously. Normal speech. PSYCHIATRIC: Appropriate mood and affect; insight and judgment normal. A/P Problem List: (1) A-fib ICD Code: I48.91 Status: Acute (2) Hypomagnesemia ICD Code: E83.42 Status: Resolved (3) Hypokalemia ICD Code: E87.6 Status: Resolved (4) Renal insufficiency ICD Code: N28.9 Status: Chronic (5) Leukocytosis ICD Code: D72.829 Status: Acute (6) Foot pain ICD Code: M79.673 Status: Acute Assessment and Plan 76-year-old female with a PMH of A. fib on Eliquis, HTN, Hyperlipidemia and Anxiety who was brought to the ER by EMS secondary to complaints of bilateral foot pain x2 wks. A-fib: w/ RVR HR 140's s/p Cardizem IV x2 doses in ER, HR was maintained 80-90' s, however went back into 120s-130s. Continued home Metoprolol 100mg tid and Cardizem 240mg daily in addition to Eliquis. Cardiology consulted, increase Cardizem to 340 mg. Heart rate remained uncontrolled overnight, received metoprolol 1. Cardiology added digoxin. Monitor on telemetry. Bilateral Feet/Leg Pain: Possible neuropathy vs PVD. No injury/trauma, no erythema, no edema, pulses intact. Foot X-rays negative bilaterally. Checked Doppler U/S although unlikely DVT while on Eliquis; U/S negative. Check ABIs, suggested a moderate atherosclerotic disease. Needs vascular surgery consultation, inpatient vs outpatient. Continue statin and check lipid panel. Oral and intravenous narcotics as needed for pain. Hypokalemia: K+ 3.2, s/p replacement in ER. Repeat K 4.3 today. Resolved. Hypomagnesemia: Mg 1.2, s/p replacement. Repeat Mag 2.2. Resolved. Renal Insufficiency: Creatinine 1.12, previously 0.76 on 09/27/16. U/a unremarkable. IVF for hydration, repeat labs show improvement, Cr 1.01. Leukocytosis: WBC persistently elevated since previous admission, neutrophil predominant. Tmax 99.0. Recent admit for PNA/Sepsis 09/25-09/27/16. CXR w/ no acute findings. U/a negative. Blood Cultures x2 with NGTD, will follow up cultures and watch for fevers. If no further signs of infection, may need outpatient hematology follow-up DVT Prophylaxis: on Eliquis Written by Manny Maurer, acting as scribe for Dr. Huerta on 10/07/16 at 09:31. The documentation accurately reflects the work performed [id number] by me Dr. Huerta on 10/07/16 at 09:31. Discharge Planning PT consulted, needs SNF, case management arranging. Problem Qualifiers (1) A-fib: Qualified Code: I48.0 - Paroxysmal atrial fibrillation (2) Foot pain: Qualified Code: M79.671 - Pain in both feet Manny Maurer Oct 07, 2016 09:31 Lesley Heurta MD Oct 07, 2016 14:04
[2016-10-07] MEDS: DOCUSATE SODIUM 50 MG/SENNA 8.6 MG TAB PO SCH ×2 (09:55→20:51)
--- NOTE | 2016-10-07 10:06 | RADRPT ---
EXAM DATE/TIME: 10/07/2016 07:00 [facility] COMPARISON: No previous studies available for comparison. INDICATIONS : BLE PAIN TECHNIQUE: Four-cuff ankle and brachial pressures were obtained. Pulse cuff waveform tracings of the ankles were recorded, and ankle-brachial indices were calculated. PRESSURES (mmHg): Brachial (arm): Left 164 Ankle: Right 128 Left 126 KARRIE: Right 0.78 Left 0.77 TBI: Right 0.76 Left 0.75 PULSED CUFF WAVEFORMS: The waveforms appear to be diminished bilaterally.. CONCLUSION: The ABIs suggest mild to moderate occlusive atherosclerotic disease of the lower extremities. Doc Moreland MD on October 07, 2016 at 10:04 Board Certified Radiologist. This report was verified electronically.
[2016-10-07 10:43] VITALS: BP 148/81; PULSE 100; RESP 18; TEMP 98; O2SAT 95
[2016-10-07] MEDS ORDERED: IOHEXOL 350 MG/ML 10 ML VIAL (for RAD DIAG) IV ONE (14:24)
--- NOTE | 2016-10-07 14:35 | RADRPT ---
EXAM DATE/TIME: 10/07/2016 14:00 [facility] COMPARISON: No previous studies available for comparison. INDICATIONS : Chest pain. Low oxygen saturation today. IV CONTRAST: 70 cc Omnipaque 350 (iohexol) IV RADIATION DOSE: 23.05 CTDIvol (mGy) MEDICAL HISTORY : Cerebrovascular disease. Cardiovascular disease. Hypertension. Colorectal cancer SURGICAL HISTORY : Colon resection. Endarterectomy. ENCOUNTER: Initial ACUITY: 1 day PAIN SCALE: 0/10 LOCATION: Chest TECHNIQUE: Volumetric scanning of the chest was performed using a pulmonary embolism protocol MIP images were re constructed. Using automated exposure control and adjustment of the mA and/or kV according to patien t size, radiation dose was kept as low as reasonably achievable to obtain optimal diagnostic quality images. FINDINGS: CT scan of the chest was performed with IV contrast. There is good opacification of the pulmonary vessels. No filling defect or pulmonary embolism is fartun ntified. There are moderate sized bilateral pleural effusions, right greater than left. There is passive atel ectasis. There is a small trilobed nodule in the left upper lobe adjacent to the fissure measuring 1 cm across. There is some air space disease in the right middle lobe medially and within the lingula . Areas of consolidation are similar to September 2016. Reformatted images are unremarkable. CONCLUSION: 1. Bilateral pleural effusions, right greater than left. No evidence of pulmonary embolism. 2. Small areas of consolidation throughout the lower lung vargas likely inflammatory or infectious. Please see above. Sam Ruggiero MD on October 07, 2016 at 14:27 Board Certified Radiologist. This report was verified electronically.
[2016-10-07 16:42] VITALS: BP 178/80; PULSE 103; RESP 17; TEMP 97.8; O2SAT 95
[2016-10-07] MEDS: ATORVASTATIN 80 MG TAB PO SCH (20:51)
[2016-10-07 23:00] VITALS: BP 146/76; PULSE 86; RESP 16; TEMP 97.8; O2SAT 97
[2016-10-07] MEDS ORDERED: TEMAZEPAM 7.5 MG CAP PO ONE (23:45)
[2016-10-08 04:19] VITALS: BP 150/78; PULSE 110; RESP 14; TEMP 97.9; O2SAT 97
[2016-10-08 06:08] LABS: AUTOMATED NEUTROPHIL # 10.7 TH/MM3 (1.8-7.7); BASOPHIL # 0.1 TH/MM3 (0-0.2); BASOPHIL % 0.6 % (0.0-2.0); EOSINOPHIL # 0.1 TH/MM3 (0-0.4); EOSINOPHIL % 0.7 % (0.0-4.0); HEMATOCRIT 37.8 % (35.0-46.0); HEMO FLAGS DIFF FINAL; LYMPH % 8.5 % (9.0-44.0); LYMPHOCYTE # 1.1 TH/MM3 (1.0-4.8); MEAN CELL VOLUME 86.8 FL (80.0-100.0); MEAN CORPUSCULAR HGB CONC 33.4 % (32.0-36.0); MONO % 7.5 % (0.0-8.0); NEUT % 82.7 % (16.0-70.0); PLATELET COUNT 418 TH/MM3 (150-450); RED BLOOD COUNT 4.35 MIL/MM3 (4.00-5.30); RED CELL DISTRIBUTION WIDTH 12.9 % (11.6-17.2); WHITE BLOOD COUNT 12.9 TH/MM3 (4.0-11.0)
[2016-10-08 06:45] LABS: BICARBONATE 32.2 MEQ/L (21.0-32.0); HDL CHOLESTEROL 32.4 MG/DL (40.0-60.0); MAGNESIUM 1.5 MG/DL (1.5-2.5); POTASSIUM 3.1 MEQ/L (3.5-5.1)
[2016-10-08] MEDS ORDERED: POTASSIUM CHLORIDE 20 MEQ CONTROLLED RELEASE TAB PO ONE (07:15)
[2016-10-08] MEDS ORDERED: MAGNESIUM SULFATE 1 GM PREMIX 100 ML IV ONE (07:15)
[2016-10-08 08:00] VITALS: PULSE 78
[2016-10-08] MEDS: DILTIAZEM-CD 300 MG CAP ER PO SCH (08:21)
[2016-10-08] MEDS: SODIUM CHLORIDE 0.9% FLUSH 5 ML FLUSH FLUSH SCH ×2 (08:21→22:41)
[2016-10-08] MEDS: guaiFENesin E.R. 600 MG TAB PO SCH ×2 (08:22→21:00)
[2016-10-08] MEDS: DOCUSATE SODIUM 50 MG/SENNA 8.6 MG TAB PO SCH ×2 (08:22→22:39)
[2016-10-08] MEDS: DIGOXIN 0.25 MG TAB PO SCH (08:22)
[2016-10-08] MEDS: PANTOPRAZOLE SOD 20 MG DELAYED RELEASE TAB PO SCH (08:23)
[2016-10-08] MEDS: METOPROLOL TARTRATE 100 MG TAB PO SCH ×3 (08:23→22:40)
[2016-10-08] MEDS: APIXABAN 5 MG TABLET PO SCH ×2 (08:23→22:38)
--- NOTE | 2016-10-08 10:49 | HHI.PR ---
Subjective Remarks Follow-up for atrial fibrillation and lower extremity pain. Patient denies any further palpitations overnight. Denies any chest pain or shortness of breath. She denies any lower extremity pain while in bed. Denies any fever, chills. She was recently admitted for pneumonia, completed antibiotics and states her symptoms improved. She does have a cough with clear phlegm. Objective Vitals Vital Signs Date Time Temp Pulse Resp B/P Pulse Ox O2 Delivery O2 Flow Rate FiO2 10/08/16 08:00 78 10/08/16 04:19 97.9 110 14 150/78 97 10/07/16 23:00 97.8 86 16 146/76 97 10/07/16 16:42 97.8 103 17 178/80 95 Result Diagram: 10/08/16 0535 10/08/16 [address] Angiography 10/07/16 0000 Signed Impressions: Service Date/Time: Friday, October 07, 2016 14:00 - CONCLUSION: 1. Bilateral pleural effusions, right greater than left. No evidence of pulmonary embolism. 2. Small areas of consolidation throughout the lower lung vargas likely inflammatory or infectious. Please see above. Sam Ruggiero MD Chest X-Ray 10/05/16 0247 Signed Impressions: Service Date/Time: Wednesday, October 05, 2016 02:59 - CONCLUSION: No acute disease. Ziyad De La Cruz MD Foot X-Ray 10/05/16 0004 Signed Impressions: Service Date/Time: Wednesday, October 05, 2016 00:57 - CONCLUSION: No acute disease. Ziyad De La Cruz MD Lower Extremity Ultrasound 10/05/16 0000 Signed Impressions: Service Date/Time: Wednesday, October 05, 2016 15:42 - CONCLUSION: The study is negative for deep venous thrombosis bilateral lower extremity. Ace Wagoner MD Objective Remarks GENERAL: Well-developed well-nourished. In no acute distress. SKIN: Warm and dry. No lesions noted. HEENT: Normocephalic. Pupils equal and round. Mucous membranes pink and moist. CARDIOVASCULAR: Irregular rate and rhythm. No murmur appreciated. RESPIRATORY: No accessory muscle use. Clear to auscultation. Breath sounds equal bilaterally. GASTROINTESTINAL: Abdomen soft, non-tender, nondistended. Bowel sounds x4. MUSCULOSKELETAL: No obvious deformities. No clubbing or cyanosis. No edema. NEUROLOGICAL: Awake and alert. No focal neurological deficits. Moves upper and lower extremities spontaneously. Normal speech. PSYCHIATRIC: Appropriate mood and affect; insight and judgment normal. A/P Problem List: (1) A-fib ICD Code: I48.91 Status: Acute (2) Hypomagnesemia ICD Code: E83.42 Status: Resolved (3) Hypokalemia ICD Code: E87.6 Status: Resolved (4) Renal insufficiency ICD Code: N28.9 Status: Chronic (5) Leukocytosis ICD Code: D72.829 Status: Acute (6) Foot pain ICD Code: M79.673 Status: Acute Assessment and Plan 76-year-old female with a PMH of A. fib on Eliquis, HTN, Hyperlipidemia and Anxiety who was brought to the ER by EMS secondary to complaints of bilateral foot pain x2 wks. A-fib: w/ RVR HR 140's s/p Cardizem IV x2 doses in ER, HR was maintained 80-90' s, however went back into 120s-130s. Continued home Metoprolol 100mg tid and Cardizem 240mg daily in addition to Eliquis. Cardiology consulted, increased Cardizem to 340 mg. Cardiology added digoxin. Heart rate seems to be improving. Monitor on telemetry. Bilateral Feet/Leg Pain: Possible neuropathy vs PVD. No injury/trauma, no erythema, no edema, pulses intact. Foot X-rays negative bilaterally. Checked Doppler U/S although unlikely DVT while on Eliquis; U/S negative. Check ABIs, suggested a moderate atherosclerotic disease. Consulted vascular surgery. Check lipid panel, LDL 59, continue statin. Oral and intravenous narcotics as needed for pain. Hypokalemia: Potassium 3.1 today. Give oral potassium replacement. Monitor. Hypomagnesemia: Magnesium 1.5 today. Give additional 1 g magnesium IV with hypokalemia as above. Monitor. Renal Insufficiency: Creatinine 1.12, previously 0.76 on 09/27/16. U/a unremarkable. IVF for hydration, repeat labs show improvement, Cr 0.9. Leukocytosis: WBC persistently elevated since previous admission, neutrophil predominant. Tmax 99.0. Recent admit for PNA/Sepsis 09/25-09/27/16, s/p antibiotics, symptoms improved. CXR w/ no acute findings. U/a negative. Blood Cultures x2 with NGTD, will follow up cultures and watch for fevers. If no further signs of infection, may need outpatient hematology follow-up Pleural effusions/consolidation: Chest CT ordered by cardiology due to tachycardia. Chest CT showed bilateral pleural effusions, right greater than left, small areas of consolidation through the lower lung vargas; no PE. Findings possibly secondary to rapid atrial fibrillation. No other signs of acute infection at this time and had recent treatment for infection. Consider echocardiogram. Monitor. DVT Prophylaxis: on Eliquis Written by Manny Maurer, acting as scribe for Dr. Huerta on 10/08/16 at 10:47. The documentation accurately reflects the work performed [id number] by me Dr. Huerta on 10/08/16 at 10:47. Discharge Planning PT consulted, needs SNF, case management arranging. Problem Qualifiers (1) A-fib: Qualified Code: I48.0 - Paroxysmal atrial fibrillation (2) Foot pain: Qualified Code: M79.671 - Pain in both feet Manny Maurer Oct 08, 2016 10:49 Lesley Huerta MD Oct 08, 2016 13:16
[2016-10-08 11:58] VITALS: BP 119/56; PULSE 72; RESP 18; TEMP 97.3; O2SAT 94
--- NOTE | 2016-10-08 15:54 | PD.CARD.PN ---
Subjective Subjective Remarks Feels better. HR under control. No evidence of pulmonary emboli. Questionable infiltrate or inflammation in lung bases. Will continue present medical regimen. Consider pulmonary opinion Objective Vital Signs / I&O Vital Signs Date Time Temp Pulse Resp B/P Pulse Ox O2 Delivery O2 Flow Rate FiO2 10/08/16 11:58 97.3 72 18 119/56 94 10/08/16 08:00 78 10/08/16 04:19 97.9 110 14 150/78 97 10/07/16 23:00 97.8 86 16 146/76 97 10/07/16 16:42 97.8 103 17 178/80 95 Physical Exam Irregular with HR 120-130 Laboratory Laboratory Tests Test 10/08/16 05:35 White Blood Count 12.9 TH/MM3 Red Blood Count 4.35 MIL/MM3 Hemoglobin 12.6 GM/DL Hematocrit 37.8 % Mean Corpuscular Volume 86.8 FL Mean Corpuscular Hemoglobin 29.0 PG Mean Corpuscular Hemoglobin 33.4 % Concent Red Cell Distribution Width 12.9 % Platelet Count 418 TH/MM3 Mean Platelet Volume 7.5 FL Neutrophils (%) (Auto) 82.7 % Lymphocytes (%) (Auto) 8.5 % Monocytes (%) (Auto) 7.5 % Eosinophils (%) (Auto) 0.7 % Basophils (%) (Auto) 0.6 % Neutrophils # (Auto) 10.7 TH/MM3 Lymphocytes # (Auto) 1.1 TH/MM3 Monocytes # (Auto) 1.0 TH/MM3 Eosinophils # (Auto) 0.1 TH/MM3 Basophils # (Auto) 0.1 TH/MM3 CBC Comment DIFF FINAL Differential Comment Sodium Level 136 MEQ/L Potassium Level 3.1 MEQ/L Chloride Level 94 MEQ/L Carbon Dioxide Level 32.2 MEQ/L Anion Gap 10 MEQ/L Blood Urea Nitrogen 10 MG/DL Creatinine 0.90 MG/DL Estimat Glomerular Filtration 61 ML/MIN Rate Random Glucose 105 MG/DL Calcium Level 8.4 MG/DL Magnesium Level 1.5 MG/DL Triglycerides Level 81 MG/DL Cholesterol Level 108 MG/DL LDL Cholesterol 59 MG/DL HDL Cholesterol 32.4 MG/DL Cholesterol/HDL Ratio 3.33 RATIO Assessment and Plan Assessment and Plan Not sure why HR out of control despite large doses of metoprolol and diltiazem. Will check d-dimer and TSH. Add dig to regimen to try to slow rate. Ole Orellana MD, FACC Oct 08, 2016 15:54
[2016-10-08 17:48] VITALS: BP 176/79; PULSE 68; RESP 18; TEMP 98.9; O2SAT 97
--- NOTE | 2016-10-08 19:49 | MB ---
cc: CHARBEL PYLE MD DATE OF CONSULTATION 10/08/[address] Kathy Barnett REASON FOR CONSULTATION Evaluation for pleural effusion. HISTORY OF THE PRESENT ILLNESS Ms. Saldaña is a 76-year-old female with history of atrial fibrillation, hypertension. She was brought by [facility] for foot pain. She was evaluated in the emergency room. She was found to have atrial fibrillation with rapid ventricular rate. Also she was found to have pleural effusion. She denies any significant shortness of breath. Does not have any cough or sputum production. No chest pain. No nausea or vomiting. IMAGING She had a workup done. Her CTA of chest shows bilateral pleural effusion, right greater than left. A small area of consolidation throughout the lower lung vargas. LABORATORY DATA Her CBC showed WBC count 12.9, hemoglobin 12.6, hematocrit 37.8, MCV 86, platelet count 418. Sodium 130, potassium 3.1, chloride 94, CO2 33, BUN 10, creatinine 0.90. PAST MEDICAL HISTORY Significant for: 1. Atrial fibrillation. 2. Hypertension. 3. Hyperlipidemia. 4. Anxiety disorder. MEDICATIONS She is currently takin. Metoprolol 100 mg q. 8-hour. 2. Digoxin 0.24 mg a day. 3. Diltiazem 300 mg a day. 4. Lipitor 80 mg at nighttime. 5. Eliquis 10 milligrams twice a day. 6. Guaifenesin 600 milligrams twice a day. 7. Protonix 20 mg a day. ALLERGIES ASPIRIN AND SULFA. SOCIAL HISTORY She is , lives with her sister, has no children. She has history of smoking which she quit a long time ago. No alcohol abuse. 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 REVIEW OF SYSTEMS She denies any weight loss. No hemoptysis. No DVT or pulmonary embolism. No seizure, stroke or epilepsy. No malignancy. PHYSICAL EXAMINATION GENERAL: Pleasant, elderly female in no acute distress. VITAL SIGNS: Blood pressure 176/79, heart rate 60, respirations 18, temperature 98. HEENT: Pupils are equal and reactive to light. Oral mucosa, nasal mucosa normal. NECK: Supple. JVP not raised. CHEST: Decreased breath sounds at the bases, a few basilar rales. CARDIOVASCULAR: S1, S2 normal. ABDOMEN: Benign. EXTREMITIES: No edema. IMPRESSION 1. Bilateral pleural effusion, right more than left, still the pleural effusion is small and she feels comfortable. 2. Atrial fibrillation with rapid ventricular rate. 3. Hypertension. PLAN I discussed with the patient that the effusion is small. We will monitor it closely. If the effusion increases then we will consider thoracentesis. The patient does not want to go for thoracentesis at this time anyway. Control her heart rate. She is on Eliquis twice a day. If she needs thoracentesis we will have to hold her Eliquis for two days. Further treatment will depend on the course in the hospital. Thank you Dr. Kathy Barnett for this consultation. MD FABBY Joe/NADIR /6:55 PM /7:20 PM
[2016-10-08 20:35] VITALS: BP 179/179; PULSE 88; RESP 18; TEMP 97.8; O2SAT 92
[2016-10-08] MEDS: ATORVASTATIN 80 MG TAB PO SCH (22:39)
[2016-10-08 23:50] VITALS: PULSE 89
[2016-10-09 00:11] VITALS: BP 155/72; PULSE 85; RESP 18; TEMP 98.3; O2SAT 91
[2016-10-09 06:03] VITALS: BP 165/79; PULSE 95; TEMP 98.3; O2SAT 94
[2016-10-09] MEDS: METOPROLOL TARTRATE 100 MG TAB PO SCH ×3 (06:04→22:03)
--- NOTE | 2016-10-09 07:56 | PD.CARD.PN ---
Subjective Subjective Remarks denies chest pain Objective Vital Signs / I&O Vital Signs Date Time Temp Pulse Resp B/P Pulse Ox O2 Delivery O2 Flow Rate FiO2 10/09/16 06:03 98.3 95 165/79 94 10/09/16 00:11 98.3 85 18 155/72 91 10/08/16 23:50 89 10/08/16 20:35 97.8 88 18 179/179 92 10/08/16 17:48 98.9 68 18 176/79 97 10/08/16 11:58 97.3 72 18 119/56 94 10/08/16 08:00 78 I/O 10/08/16 10/08/16 10/08/16 10/09/16 10/09/16 10/09/16 07:00 15:00 23:00 07:00 15:00 23:00 Intake Total 480 ml Output Total 4 ml Balance 476 ml Intake Oral 480 ml Output Urine Total 4 ml Physical Exam GENERAL: Well-nourished, well-developed patient in no apparent distress. NECK: No JVD. No carotid bruit. CARDIOVASCULAR: IR IR . S1/S2 no murmur, rub, or gallop. RESPIRATORY: No accessory muscle use. Clear to auscultation. Breath sounds equal bilaterally. GASTROINTESTINAL: Abdomen soft, non-tender, nondistended. MUSCULOSKELETAL: Extremities without clubbing, cyanosis, or edema. Assessment and Plan Problem List: (1) Atrial fibrillation Assessment and Plan heart rate control strategy, well controlled at this point. Continue present medical regimen Jose Rodriguez Oct 09, 2016 07:56
[2016-10-09 08:00] VITALS: PULSE 80
[2016-10-09] MEDS: guaiFENesin E.R. 600 MG TAB PO SCH ×2 (08:29→22:04)
[2016-10-09] MEDS: PANTOPRAZOLE SOD 20 MG DELAYED RELEASE TAB PO SCH (08:29)
[2016-10-09] MEDS: DIGOXIN 0.25 MG TAB PO SCH (08:29)
[2016-10-09] MEDS: DOCUSATE SODIUM 50 MG/SENNA 8.6 MG TAB PO SCH ×2 (08:29→22:04)
[2016-10-09] MEDS: DILTIAZEM-CD 300 MG CAP ER PO SCH (08:29)
[2016-10-09] MEDS: SODIUM CHLORIDE 0.9% FLUSH 5 ML FLUSH FLUSH SCH ×2 (08:29→22:03)
[2016-10-09] MEDS: APIXABAN 5 MG TABLET PO SCH ×2 (08:29→22:04)
[2016-10-09 11:20] LABS: AUTOMATED NEUTROPHIL # 9.6 TH/MM3 (1.8-7.7); BASOPHIL # 0.1 TH/MM3 (0-0.2); BASOPHIL % 0.7 % (0.0-2.0); EOSINOPHIL % 0.3 % (0.0-4.0); HEMATOCRIT 39.9 % (35.0-46.0); HEMO FLAGS DIFF FINAL; LYMPH % 6.6 % (9.0-44.0); LYMPHOCYTE # 0.7 TH/MM3 (1.0-4.8); MEAN CELL VOLUME 87.4 FL (80.0-100.0); MEAN CORPUSCULAR HEMOGLOBIN 29.9 PG (27.0-34.0); MEAN CORPUSCULAR HGB CONC 34.2 % (32.0-36.0); MONO % 6.6 % (0.0-8.0); NEUT % 85.8 % (16.0-70.0); PLATELET COUNT 411 TH/MM3 (150-450); RED BLOOD COUNT 4.57 MIL/MM3 (4.00-5.30); RED CELL DISTRIBUTION WIDTH 12.9 % (11.6-17.2); WHITE BLOOD COUNT 11.2 TH/MM3 (4.0-11.0)
--- NOTE | 2016-10-09 11:21 | HHI.PR ---
Subjective Remarks Follow up for afib with RVR, pleural effusions, feet pain. The patient is sleeping, awakens to voice. Denies any feet pain today. Heart rate better controlled. No chest pains/SOB. The patient is slightly more drowsy today compared to previous days. Objective Vitals Vital Signs Date Time Temp Pulse Resp B/P Pulse Ox O2 Delivery O2 Flow Rate FiO2 10/09/16 06:03 98.3 95 165/79 94 10/09/16 00:11 98.3 85 18 155/72 91 10/08/16 23:50 89 10/08/16 20:35 97.8 88 18 179/179 92 10/08/16 17:48 98.9 68 18 176/79 97 10/08/16 11:58 97.3 72 18 119/56 94 I/O 10/08/16 10/08/16 10/08/16 10/09/16 10/09/16 10/09/16 07:00 15:00 23:00 07:00 15:00 23:00 Intake Total 480 ml Output Total 4 ml Balance 476 ml Intake Oral 480 ml Output Urine Total 4 ml Result Diagram: 10/08/16 0535 10/08/[address] Angiography 10/07/16 0000 Signed Impressions: Service Date/Time: Friday, October 07, 2016 14:00 - CONCLUSION: 1. Bilateral pleural effusions, right greater than left. No evidence of pulmonary embolism. 2. Small areas of consolidation throughout the lower lung vargas likely inflammatory or infectious. Please see above. Sam Ruggiero MD Chest X-Ray 10/05/16 0247 Signed Impressions: Service Date/Time: Wednesday, October 05, 2016 02:59 - CONCLUSION: No acute disease. Ziyad De La Cruz MD Foot X-Ray 10/05/16 0004 Signed Impressions: Service Date/Time: Wednesday, October 05, 2016 00:57 - CONCLUSION: No acute disease. Ziyad De La Cruz MD Lower Extremity Ultrasound 10/05/16 0000 Signed Impressions: Service Date/Time: Wednesday, October 05, 2016 15:42 - CONCLUSION: The study is negative for deep venous thrombosis bilateral lower extremity. Ace Wagoner MD Objective Remarks GENERAL: Well-nourished, well-developed elderly female patient in NAD. SKIN: Warm and dry. No rash. HEAD: Normocephalic. Atraumatic. NECK: Supple. Trachea midline. CARDIOVASCULAR: Irregularly irregular rate and rhythm. S1, S2 noted. No murmur appreciated. RESPIRATORY: No accessory muscle use. Clear to auscultation. Breath sounds equal bilaterally. GASTROINTESTINAL: Abdomen soft, non-tender, nondistended. Normoactive bowel sounds x4. MUSCULOSKELETAL: No obvious deformities. Extremities without clubbing, cyanosis , or edema. Bilaterally feet nontender. No calf swelling/tenderness. NEUROLOGICAL: Awake and alert. No obvious cranial nerve deficits. Motor grossly within normal limits. Normal speech. PSYCHIATRIC: Appropriate mood and affect; insight and judgment normal. Medications and IVs Current Medications Medications (Trade) Dose Ordered Sig/Marti Route Start Time Stop Time Status Last Admin (NS Flush) 2 ml UNSCH PRN FLUSH 10/05/16 04:00 (NS Flush) 2 ml BID FLUSH 10/05/16 09:00 10/09/16 08:29 (Zofran Inj) 4 mg Q6H PRN IVP 10/05/16 04:00 (Dulcolax Supp) 10 mg DAILY PRN MA 10/05/16 04:00 (Tylenol) 650 mg Q6H PRN PO 10/05/16 04:00 ([place] 5-325 Mg) 1 tab Q4H PRN PO 10/05/16 04:00 10/05/16 22:16 (Morphine Inj) 2 mg Q3H PRN IV 10/05/16 04:00 (Eliquis) 10 mg BID PO 10/05/16 09:00 10/09/16 08:29 (Lipitor) 80 mg HS PO 10/05/16 21:00 10/08/16 22:39 (Mucinex Er) 600 mg BID PO 10/05/16 09:00 10/09/16 08:29 (Protonix) 20 mg DAILY PO 10/05/16 09:00 10/09/16 08:29 (Cardizem Cd) 300 mg DAILY PO 10/07/16 09:00 10/09/16 08:29 (Lanoxin) 0.25 mg DAILY PO 10/08/16 09:00 10/09/16 08:29 (Rosa Maria-Colace) 1 tab BID PO 10/07/16 09:30 10/09/16 08:29 (Lopressor) 100 mg Q8HR PO 10/08/16 14:00 10/09/16 14:17 Urinary Catheter: No Vascular Central Line Catheter: No A/P Problem List: (1) A-fib ICD Code: I48.91 Status: Acute (2) Hypomagnesemia ICD Code: E83.42 Status: Resolved (3) Hypokalemia ICD Code: E87.6 Status: Resolved (4) Renal insufficiency ICD Code: N28.9 Status: Chronic (5) Leukocytosis ICD Code: D72.829 Status: Acute (6) Foot pain ICD Code: M79.673 Status: Acute Assessment and Plan 76-year-old female with a PMH of A. fib on Eliquis, HTN, Hyperlipidemia and Anxiety who was brought to the ER by EMS secondary to complaints of bilateral foot pain x2 wks. A-fib: w/ RVR HR 140's s/p Cardizem IV x2 doses in ER, HR was maintained 80-90' s, however went back into 120s-130s. Continued home Metoprolol 100mg tid and Cardizem 240mg daily in addition to Eliquis. Cardiology consulted, increased Cardizem to 340 mg, HR still elevated, then added digoxin 0.25mg daily. Heart rate seems to be improving. Monitor on telemetry. Stable from cardiology standpoint. Bilateral Feet/Leg Pain: Possible neuropathy vs PVD. No injury/trauma, no erythema, no edema, pulses intact. Foot X-rays negative bilaterally. Doppler U/ S negative. ABIs suggested moderate atherosclerotic disease. Consulted vascular surgery. Lipid panel with LDL 59, continue statin. Oral and IV narcotics as needed for pain. Hypokalemia: Potassium 3.1. Give oral potassium replacement. Monitor, replace potassium as needed. Hypomagnesemia: Magnesium 1.5. Given additional 1 g magnesium IV with hypokalemia as above. Monitor. Renal Insufficiency: Creatinine 1.12, previously 0.76 on 09/27/16. U/a unremarkable. IVF for hydration, repeat labs show improvement, Cr 0.9. Leukocytosis: WBC persistently elevated since previous admission, neutrophil predominant. Tmax 99.0. Recent admit for PNA/Sepsis 09/25-09/27/16, s/p antibiotics, symptoms improved. CXR w/ no acute findings. U/a negative. Blood Cultures x2 with NGTD, follow up cultures and watch for fevers. If no further signs of infection, may need outpatient hematology follow-up Pleural effusions/consolidation: Chest CT ordered by cardiology due to tachycardia. Chest CT showed bilateral pleural effusions, right greater than left, small areas of consolidation through the lower lung vargas; no PE. No other signs of acute infection at this time and had recent treatment for infection. Pulmonology consulted, recommended continued medical management, no need for thoracentesis at this time. Start on Lasix 20mg po daily with KCl replacement. DVT Prophylaxis: on Eliquis Written by Elana Dang, acting as scribe for Dr. Sheffield on 10/09/16 at 11: 19. Discharge Planning Patient needs rehab, placement arranged at [facility], will discharge when medically clear. Attending Statement The documentation accurately reflects the work performed [id number] by me on at 11:19. Problem Qualifiers (1) A-fib: Qualified Code: I48.0 - Paroxysmal atrial fibrillation (2) Foot pain: Qualified Code: M79.671 - Pain in both feet Elana Dang PA-C Oct 09, 2016 11:21 Phillip Ang MD Oct 14, 2016 13:21
[2016-10-09 11:26] VITALS: BP 158/72; PULSE 86; RESP 20; TEMP 97.8; O2SAT 93
[2016-10-09 11:45] LABS: ALKALINE PHOSPHATASE 117 U/L (45-117); ALT (GPT) 44 U/L (10-53); ANION GAP 10 MEQ/L (5-15); AST (GOT) 65 U/L (15-37); BICARBONATE 33.7 MEQ/L (21.0-32.0); BLOOD UREA NITROGEN 13 MG/DL (7-18); CHLORIDE 90 MEQ/L (98-107); GLOMERULAR FILTRATION RATE 58 ML/MIN (>89); POTASSIUM 3.4 MEQ/L (3.5-5.1); SODIUM (NA) 134 MEQ/L (136-145); TOTAL BILIRUBIN ADULT 0.7 MG/DL (0.2-1.0)
[2016-10-09 16:03] VITALS: BP 146/66; PULSE 67; RESP 20; TEMP 98.5; O2SAT 94
[2016-10-09 16:17] LABS: HEMOGLOBIN A1a 0.7 %; HEMOGLOBIN A1b 0.9 %; HEMOGLOBIN Ao 84.4 %; HEMOGLOBIN F 0.8 %; HEMOGLOBIN LA1C 2.1 %; HEMOGLOBIN P3 5.7 %
[2016-10-09] MEDS ORDERED: POTASSIUM CHLORIDE 20 MEQ CONTROLLED RELEASE TAB PO ONE (16:45)
[2016-10-09] MEDS ORDERED: FUROSEMIDE 20 MG TAB PO ONE (16:45)
--- NOTE | 2016-10-09 18:42 | HHI.PR ---
Subjective Remarks 76 YOWF with AF,Pl eff, sob Feels better No fever or chills Weaned to RA Objective Vital Signs Vital Signs Date Time Temp Pulse Resp B/P Pulse Ox O2 Delivery O2 Flow Rate FiO2 10/09/16 16:03 98.5 67 20 146/66 94 10/09/16 11:26 97.8 86 20 158/72 93 10/09/16 08:00 80 10/09/16 06:03 98.3 95 165/79 94 10/09/16 00:11 98.3 85 18 155/72 91 10/08/16 23:50 89 10/08/16 20:35 97.8 88 18 179/179 92 I/O 10/08/16 10/08/16 10/08/16 10/09/16 10/09/16 10/09/16 07:00 15:00 23:00 07:00 15:00 23:00 Intake Total 480 ml Output Total 4 ml Balance 476 ml Intake Oral 480 ml Output Urine Total 4 ml Result Diagram: 10/09/16 1045 10/09/16 1045 Objective Remarks GENERAL: MBMN WF,NAD SKIN: Warm and dry. HEAD: Normocephalic. EYES: No scleral icterus. No injection or drainage. NECK: Supple, trachea midline. No JVD or lymphadenopathy. CARDIOVASCULAR: Regular rate and rhythm without murmurs, gallops, or rubs. RESPIRATORY: Breath sounds equal bilaterally. No accessory muscle use. GASTROINTESTINAL: Abdomen soft, non-tender, nondistended. MUSCULOSKELETAL: No cyanosis, or edema. BACK: Nontender without obvious deformity. No CVA tenderness. A/P Assessment and Plan Pleural effusion, small AF HTN PLAN: Pl effusion small, will monitor Eliquis BID Diurease monitor Charles Ponce MD Oct 09, 2016 18:42
[2016-10-09 20:22] VITALS: BP 138/72; PULSE 74; RESP 18; TEMP 98.2; O2SAT 96
[2016-10-09] MEDS: ATORVASTATIN 80 MG TAB PO SCH (22:03)
[2016-10-10 03:29] VITALS: BP 133/85; PULSE 86; RESP 18; TEMP 98.2; O2SAT 98
[2016-10-10] MEDS: METOPROLOL TARTRATE 100 MG TAB PO SCH ×2 (06:49→15:45)
[2016-10-10 07:40] VITALS: BP 170/75; PULSE 78; RESP 17; TEMP 97.7; O2SAT 95
--- NOTE | 2016-10-10 08:10 | PD.CARD.PN ---
Subjective Subjective Remarks denies CV complaints Objective Vital Signs / I&O Vital Signs Date Time Temp Pulse Resp B/P Pulse Ox O2 Delivery O2 Flow Rate FiO2 10/10/16 07:40 97.7 78 17 170/75 95 10/10/16 03:29 98.2 86 18 133/85 98 10/09/16 20:22 98.2 74 18 138/72 96 10/09/16 16:03 98.5 67 20 146/66 94 10/09/16 11:26 97.8 86 20 158/72 93 I/O 10/09/16 10/09/16 10/09/16 10/10/16 10/10/16 10/10/16 07:00 15:00 23:00 07:00 15:00 23:00 Intake Total 480 ml Output Total 4 ml Balance 476 ml Intake Oral 480 ml Output Urine Total 4 ml # Voids 2 Physical Exam GENERAL: Well-nourished, well-developed patient in no apparent distress. NECK: No JVD. No carotid bruit. CARDIOVASCULAR: IR IR . S1/S2 no murmur, rub, or gallop. RESPIRATORY: No accessory muscle use. Clear to auscultation. Breath sounds equal bilaterally. GASTROINTESTINAL: Abdomen soft, non-tender, nondistended. MUSCULOSKELETAL: Extremities without clubbing, cyanosis, or edema. Laboratory Laboratory Tests Test 10/09/16 10:45 White Blood Count 11.2 TH/MM3 Red Blood Count 4.57 MIL/MM3 Hemoglobin 13.6 GM/DL Hematocrit 39.9 % Mean Corpuscular Volume 87.4 FL Mean Corpuscular Hemoglobin 29.9 PG Mean Corpuscular Hemoglobin 34.2 % Concent Red Cell Distribution Width 12.9 % Platelet Count 411 TH/MM3 Mean Platelet Volume 7.6 FL Neutrophils (%) (Auto) 85.8 % Lymphocytes (%) (Auto) 6.6 % Monocytes (%) (Auto) 6.6 % Eosinophils (%) (Auto) 0.3 % Basophils (%) (Auto) 0.7 % Neutrophils # (Auto) 9.6 TH/MM3 Lymphocytes # (Auto) 0.7 TH/MM3 Monocytes # (Auto) 0.7 TH/MM3 Eosinophils # (Auto) 0.0 TH/MM3 Basophils # (Auto) 0.1 TH/MM3 CBC Comment DIFF FINAL Differential Comment Sodium Level 134 MEQ/L Potassium Level 3.4 MEQ/L Chloride Level 90 MEQ/L Carbon Dioxide Level 33.7 MEQ/L Anion Gap 10 MEQ/L Blood Urea Nitrogen 13 MG/DL Creatinine 0.94 MG/DL Estimat Glomerular Filtration 58 ML/MIN Rate Random Glucose 105 MG/DL Hemoglobin A1c 5.7 % Calcium Level 8.7 MG/DL Total Bilirubin 0.7 MG/DL Aspartate Amino Transf 65 U/L (AST/SGOT) Alanine Aminotransferase 44 U/L (ALT/SGPT) Alkaline Phosphatase 117 U/L Total Protein 6.9 GM/DL Albumin 2.1 GM/DL Assessment and Plan Problem List: (1) Atrial fibrillation Assessment and Plan heart rate control strategy, well controlled at this point. Continue present medical regimen. Sign off K being replaced Jose Rodriguez Oct 10, 2016 08:10
[2016-10-10] MEDS: guaiFENesin E.R. 600 MG TAB PO SCH (08:37)
[2016-10-10] MEDS: APIXABAN 5 MG TABLET PO SCH (08:38)
[2016-10-10] MEDS: DILTIAZEM-CD 300 MG CAP ER PO SCH (08:38)
[2016-10-10] MEDS: DOCUSATE SODIUM 50 MG/SENNA 8.6 MG TAB PO SCH (08:38)
[2016-10-10] MEDS: DIGOXIN 0.25 MG TAB PO SCH (08:38)
[2016-10-10] MEDS: PANTOPRAZOLE SOD 20 MG DELAYED RELEASE TAB PO SCH (08:38)
[2016-10-10] MEDS: SODIUM CHLORIDE 0.9% FLUSH 5 ML FLUSH FLUSH SCH (08:39)
[2016-10-10] MEDS ORDERED: FUROSEMIDE 20 MG TAB PO SCH (09:00)
[2016-10-10] MEDS ORDERED: POTASSIUM CHLORIDE 10 MEQ CAP PO SCH (09:00)
--- NOTE | 2016-10-10 09:20 | HHI.PR ---
Subjective Remarks Follow up for afib with RVR, pleural effusions, feet pain. The patient is awake , alert, oriented this morning. She denies any current feet/leg pain. She denies any chest pains or shortness of breath. We discussed how drowsy she was yesterday, she states it's because she stays up late to watch tv and football, and she is not a morning person. She is agreeable to go to rehab today. She has no other medical complaints at this time. Objective Vitals Vital Signs Date Time Temp Pulse Resp B/P Pulse Ox O2 Delivery O2 Flow Rate FiO2 10/10/16 07:40 97.7 78 17 170/75 95 10/10/16 03:29 98.2 86 18 133/85 98 10/09/16 20:22 98.2 74 18 138/72 96 10/09/16 16:03 98.5 67 20 146/66 94 10/09/16 11:26 97.8 86 20 158/72 93 I/O 10/09/16 10/09/16 10/09/16 10/10/16 10/10/16 10/10/16 07:00 15:00 23:00 07:00 15:00 23:00 Intake Total 480 ml Output Total 4 ml Balance 476 ml Intake Oral 480 ml Output Urine Total 4 ml # Voids 2 Result Diagram: 10/09/16 1045 10/09/16 [address] Angiography 10/07/16 0000 Signed Impressions: Service Date/Time: Friday, October 07, 2016 14:00 - CONCLUSION: 1. Bilateral pleural effusions, right greater than left. No evidence of pulmonary embolism. 2. Small areas of consolidation throughout the lower lung vargas likely inflammatory or infectious. Please see above. Sam Ruggiero MD Chest X-Ray 10/05/16 0247 Signed Impressions: Service Date/Time: Wednesday, October 05, 2016 02:59 - CONCLUSION: No acute disease. Ziyad De La Cruz MD Foot X-Ray 10/05/16 0004 Signed Impressions: Service Date/Time: Wednesday, October 05, 2016 00:57 - CONCLUSION: No acute disease. Ziyad De La Cruz MD Lower Extremity Ultrasound 10/05/16 0000 Signed Impressions: Service Date/Time: Wednesday, October 05, 2016 15:42 - CONCLUSION: The study is negative for deep venous thrombosis bilateral lower extremity. Ace Wagoner MD Objective Remarks GENERAL: Well-nourished, well-developed elderly female patient in NAD. SKIN: Warm and dry. No rash. HEAD: Normocephalic. Atraumatic. NECK: Supple. Trachea midline. CARDIOVASCULAR: Irregularly irregular rate and rhythm. S1, S2 noted. No murmur appreciated. RESPIRATORY: No accessory muscle use. Clear to auscultation. Breath sounds equal bilaterally. GASTROINTESTINAL: Abdomen soft, non-tender, nondistended. Normoactive bowel sounds x4. MUSCULOSKELETAL: No obvious deformities. Extremities without clubbing, cyanosis , or edema. Bilaterally feet nontender. No calf swelling/tenderness. NEUROLOGICAL: Awake and alert. No obvious cranial nerve deficits. Motor grossly within normal limits. Normal speech. PSYCHIATRIC: Appropriate mood and affect; insight and judgment normal. Medications and IVs Current Medications Medications (Trade) Dose Ordered Sig/Marti Route Start Time Stop Time Status Last Admin (NS Flush) 2 ml UNSCH PRN FLUSH 10/05/16 04:00 (NS Flush) 2 ml BID FLUSH 10/05/16 09:00 10/10/16 08:39 (Zofran Inj) 4 mg Q6H PRN IVP 10/05/16 04:00 (Dulcolax Supp) 10 mg DAILY PRN [place] 10/05/16 04:00 (Tylenol) 650 mg Q6H PRN PO 10/05/16 04:00 ([place] 5-325 Mg) 1 tab Q4H PRN PO 10/05/16 04:00 10/05/16 22:16 (Morphine Inj) 2 mg Q3H PRN IV 10/05/16 04:00 (Eliquis) 10 mg BID PO 10/05/16 09:00 10/10/16 08:38 (Lipitor) 80 mg HS PO 10/05/16 21:00 10/09/16 22:03 (Mucinex Er) 600 mg BID PO 10/05/16 09:00 10/10/16 08:37 (Protonix) 20 mg DAILY PO 10/05/16 09:00 10/10/16 08:38 (Cardizem Cd) 300 mg DAILY PO 10/07/16 09:00 10/10/16 08:38 (Lanoxin) 0.25 mg DAILY PO 10/08/16 09:00 10/10/16 08:38 (Rosa Maria-Colace) 1 tab BID PO 10/07/16 09:30 10/10/16 08:38 (Lopressor) 100 mg Q8HR PO 10/08/16 14:00 10/10/16 06:49 (Lasix) 20 mg DAILY PO 10/10/16 09:00 10/10/16 08:38 (KCl) 10 meq DAILY PO 10/10/16 09:00 A/P Problem List: (1) A-fib ICD Code: I48.91 Status: Acute (2) Hypomagnesemia ICD Code: E83.42 Status: Resolved (3) Hypokalemia ICD Code: E87.6 Status: Resolved (4) Renal insufficiency ICD Code: N28.9 Status: Chronic (5) Leukocytosis ICD Code: D72.829 Status: Acute (6) Foot pain ICD Code: M79.673 Status: Acute Assessment and Plan 76-year-old female with a PMH of A. fib on Eliquis, HTN, Hyperlipidemia and Anxiety who was brought to the ER by EMS secondary to complaints of bilateral foot pain x2 wks. A-fib: w/ RVR HR 140's s/p Cardizem IV x2 doses in ER, HR was maintained 80-90' s, however went back into 120s-130s. Continued home Metoprolol 100mg tid and Cardizem 240mg daily in addition to Eliquis. Cardiology consulted, increased Cardizem to 340 mg, HR still elevated, then added digoxin 0.25mg daily. Heart rate seems to be improving. Monitor on telemetry. Stable from cardiology standpoint. Bilateral Feet/Leg Pain: Possible neuropathy vs PVD. No injury/trauma, no erythema, no edema, pulses intact. Foot X-rays negative bilaterally. Doppler U/ S negative. ABIs suggested moderate atherosclerotic disease. Outpatient f/up with vascular surgery if pain persists. Lipid panel with LDL 59, continue statin. Oral and IV narcotics as needed for pain. Hypokalemia: Potassium 3.1. Give oral potassium replacement. Monitor, replace potassium as needed. Repeat BMP today. Hypomagnesemia: Magnesium 1.5. Given additional 1 g magnesium IV with hypokalemia as above. Monitor. Renal Insufficiency: Creatinine 1.12, previously 0.76 on 09/27/16. U/a unremarkable. IVF for hydration, repeat labs show improvement, Cr 0.9. Leukocytosis: WBC persistently elevated since previous admission, neutrophil predominant. Tmax 99.0. Recent admit for PNA/Sepsis 09/25-09/27/16, s/p antibiotics, symptoms improved. CXR w/ no acute findings. U/a negative. Blood Cultures x2 with NGTD. Monitor for fevers. No further signs of infection, may need outpatient hematology follow-up. Leukocytosis improving, now WBC 11K. Pleural effusions/consolidation: Chest CT ordered by cardiology due to tachycardia. Chest CT showed bilateral pleural effusions, right greater than left, small areas of consolidation through the lower lung vargas; no PE. No other signs of acute infection at this time and had recent treatment for infection. Pulmonology consulted, recommended continued medical management, no need for thoracentesis at this time. Start on Lasix 20mg po daily with KCl replacement. DVT Prophylaxis: on Eliquis Discharge Planning Patient needs rehab, placement arranged at [facility], will discharge when medically clear, likely today if labs wnl. Problem Qualifiers (1) A-fib: Qualified Code: I48.0 - Paroxysmal atrial fibrillation (2) Foot pain: Qualified Code: M79.671 - Pain in both feet Elana Dang PA-C Oct 10, 2016 09:20
[2016-10-10 11:34] VITALS: BP 129/60; PULSE 79; RESP 18; O2SAT 93
[2016-10-10] MEDS ORDERED: DILT300C3 PO (13:44)
[2016-10-10] MEDS ORDERED: FURO20TA PO (13:44)
[2016-10-10] MEDS ORDERED: POTA10CA PO (13:44)
[2016-10-10] MEDS ORDERED: SENN1TAB PO (13:44)
[2016-10-10] MEDS ORDERED: DIGO0.25 PO (13:44)
--- NOTE | 2016-10-10 13:45 | HHI.DCPOC ---
Discharge Care Plan Diagnosis: (1) Atrial fibrillation (2) Hypertension (3) Hyperlipidemia (4) Foot pain Goals to Promote Your Health * To prevent worsening of your condition and complications * To maintain your health at the optimal level Directions to Meet Your Goals Take your medications as prescribed Follow your dietary instruction Follow activity as directed Keep your appointments as scheduled Take your immunizations and boosters as scheduled If your symptoms worsen call your PCP, if no PCP go to Urgent Care Center or Emergency Room Smoking is Dangerous to Your Health. Avoid second hand smoke Call the 24-hour hour crisis hotline for domestic abuse at Elana Dagn PA-C Oct 10, 2016 13:45
[2016-10-10 15:25] VITALS: BP 139/63; PULSE 67; RESP 18; TEMP 97.8; O2SAT 95
[2016-10-10 17:02] LABS: BICARBONATE 35.3 MEQ/L (21.0-32.0); MAGNESIUM 1.6 MG/DL (1.5-2.5); POTASSIUM 3.5 MEQ/L (3.5-5.1)
--- NOTE | 2016-11-15 06:36 | HHI.DS ---
Discharge Summary Admission Date Oct 06, 2016 at 11:12 Discharge Date: Oct 10, 2016 Admitting Diagnosis AFib, HypoMg, HypoK (1) A-fib ICD Code: I48.91 Diagnosis: Principal (2) Hypomagnesemia ICD Code: E83.42 Diagnosis: Principal (3) Hypokalemia ICD Code: E87.6 Diagnosis: Principal (4) Renal insufficiency ICD Code: N28.9 Diagnosis: Principal (5) Leukocytosis ICD Code: D72.829 Diagnosis: Principal (6) Foot pain ICD Code: M79.673 Diagnosis: Principal Procedures none Brief History - From Admission This is a 76-year-old female with a PMH of A. fib on Eliquis, HTN, Hyperlipidemia and Anxiety who was brought to the ER by EMS secondary to complaints of bilateral foot pain x2 wks. Denies recent injury or trauma. Recent admit 09/25-09/27/16 for Sepsis from PNA s/p IV Rocephin/Zithro and d/c'd w / Zithro x5 days. Denies fever, chills, edema or redness to bilateral lower extremities. On arrival, BP 170/92, HR 126, O2 sat 96% on RA, Temp 99.0. Noted to be in A. fib with RVR on arrival. S/p Cardizem x2 IV w/ HR now maintained in the 80's. WBC 16.6. Creatinine 1.12, previously 0.76 on . K+ 3.2. U/a pending. CXR w/ no acute findings. Bilateral Foot X-rays negative for acute findings. Imaging Last Impressions CT Angiography 10/07/16 0000 Signed Impressions: Service Date/Time: Friday, October 07, 2016 14:00 - CONCLUSION: 1. Bilateral pleural effusions, right greater than left. No evidence of pulmonary embolism. 2. Small areas of consolidation throughout the lower lung vargas likely inflammatory or infectious. Please see above. Sam Ruggiero MD Chest X-Ray 10/05/16 0247 Signed Impressions: Service Date/Time: Wednesday, October 05, 2016 02:59 - CONCLUSION: No acute disease. Ziyad De La Cruz MD Foot X-Ray 10/05/16 0004 Signed Impressions: Service Date/Time: Wednesday, October 05, 2016 00:57 - CONCLUSION: No acute disease. Ziyad De La Cruz MD Lower Extremity Ultrasound 10/05/16 0000 Signed Impressions: Service Date/Time: Wednesday, October 05, 2016 15:42 - CONCLUSION: The study is negative for deep venous thrombosis bilateral lower extremity. Ace Wagoner MD PE at Discharge GENERAL: Well-nourished, well-developed elderly female patient in [facility]. SKIN: Warm and dry. No rash. HEAD: Normocephalic. Atraumatic. NECK: Supple. Trachea midline. CARDIOVASCULAR: Irregularly irregular rate and rhythm. S1, S2 noted. No murmur appreciated. RESPIRATORY: No accessory muscle use. Clear to auscultation. Breath sounds equal bilaterally. GASTROINTESTINAL: Abdomen soft, non-tender, nondistended. Normoactive bowel sounds x4. MUSCULOSKELETAL: No obvious deformities. Extremities without clubbing, cyanosis , or edema. Bilaterally feet nontender. No calf swelling/tenderness. NEUROLOGICAL: Awake and alert. No obvious cranial nerve deficits. Motor grossly within normal limits. Normal speech. PSYCHIATRIC: Appropriate mood and affect; insight and judgment normal. Hospital Course 76-year-old female with a PMH of A. fib on Eliquis, HTN, Hyperlipidemia and Anxiety who was brought to the ER by EMS secondary to complaints of bilateral foot pain x2 wks. A-fib: w/ RVR HR 140's s/p Cardizem IV x2 doses in ER, HR was maintained 80-90' s, however went back into 120s-130s. Continued home Metoprolol 100mg tid and Cardizem 240mg daily in addition to Eliquis. Cardiology consulted, increased Cardizem to 340 mg, HR still elevated, then added digoxin 0.25mg daily. Heart rate seems to be improving. Monitor on telemetry. Stable from cardiology standpoint. Bilateral Feet/Leg Pain: Possible neuropathy vs PVD. No injury/trauma, no erythema, no edema, pulses intact. Foot X-rays negative bilaterally. Doppler U/ S negative. ABIs suggested moderate atherosclerotic disease. Outpatient f/up with vascular surgery if pain persists. Lipid panel with LDL 59, continue statin. Pain controlled with oral and IV narcotics. Hypokalemia: Potassium 3.1. Replaced orally. Monitored during hospital stay. Hypomagnesemia: Magnesium 1.5. Replaced with Magnesium IV with hypokalemia as above. Magnesium monitored. IGOR: Creatinine 1.12, previously 0.76 on 09/27/16. U/a unremarkable. Resolved after IV fluid administration. Leukocytosis: WBC persistently elevated since previous admission, neutrophil predominant. Tmax 99.0. Recent admit for PNA/Sepsis 09/25-09/27/16, s/p antibiotics, symptoms improved. CXR w/ no acute findings. U/a negative. Blood Cultures x2 with NGTD. Monitor for fevers. No further signs of infection, may need outpatient hematology follow-up. Leukocytosis improving, WBC 11K on discharge. Pleural effusions/consolidation: Chest CT ordered by cardiology due to tachycardia. Chest CT showed bilateral pleural effusions, right greater than left, small areas of consolidation through the lower lung vargas; no PE. No other signs of acute infection at this time and had recent treatment for infection. Pulmonology consulted, recommended continued medical management, no need for thoracentesis at this time. Start on Lasix 20mg po daily with KCl replacement. DVT Prophylaxis: on Eliquis Pt Condition on Discharge: Stable Discharge Disposition: Discharge to SNF Discharge Time: > 30 minutes Discharge Instructions DIET: Follow Instructions for: Heart Healthy Diet Activities you can perform: Regular-No Restrictions Follow up Referrals: Cardiology - 1 Week with Ole Orellana MD PCP Follow-up - 1 Week New Medications: Digoxin (Digoxin) 0.25 Mg Tab 0.25 MG PO DAILY Regulate Heart Beat #30 TAB Diltiazem CD 24 HR (Diltiazem CD 24 HR) 300 Mg Caper 300 MG PO DAILY Regulate Heart Beat #30 CAP Furosemide (Furosemide) 20 Mg Tab 20 MG PO DAILY fluid #30 TAB Potassium Chloride ER (Potassium Chloride ER) 10 Meq Cap 10 MEQ PO DAILY Electrolyte Replacement #30 CAP Sennosides-Docusate Sodium (Senna Plus 8.6-50 mg) 1 Tab Tab 1 TAB PO BID Constipation #60 TAB Continued Medications: Apixaban (Eliquis) 5 Mg Tab 10 MG PO BID Blood Clot Prevention #14 Ref 0 TAB Atorvastatin (Lipitor) 80 Mg Tab 80 MG PO HS Cholesterol Management #30 Ref 0 TAB Guaifenesin ER 12 HR (Mucinex ER 12 HR) 600 Mg Reyna 600 MG PO BID Cough #12 TAB Metoprolol Tartrate (Metoprolol Tartrate) 100 Mg Tab 100 MG PO TID #60 Ref 0 TAB Omeprazole (Omeprazole) 20 Mg Cap 20 MG PO DAILY Discontinued Medications: Azithromycin (Azithromycin) 250 Mg Tab 250 MG PO DIRECTED Take 2 tabs (500 mg) on day 1 then 1 tab daily x 4 days. Infection #6 Ref 0 TAB Diltiazem CD 24 HR (Diltiazem CD 24 HR) 240 Mg Caper 240 MG PO DAILY #30 Ref 0 CAP Phillip Ang MD Nov 15, 2016 06:36
== END 2016-10-10 18:35 | DRG 309 ==
LOC: NEPC 23:39 → NEDA 10-05 03:54 → NEPFCDU 10-05 04:34 → OBSVTOIN 10-06 11:12 → NEPFCDU 10-07 16:37
PROVIDERS: ADMIT Hospitalist; ATTEND Hospitalist
DX: I48.0 Paroxysmal atrial fibrillation (principal); J90 Pleural effusion, not elsewhere classified; E83.42 Hypomagnesemia; I10 Essential (primary) hypertension; E87.6 Hypokalemia; I25.10 Atherosclerotic heart disease of native coronary artery without angina pectoris; N28.9 Disorder of kidney and ureter, unspecified; D72.829 Elevated white blood cell count, unspecified; E78.5 Hyperlipidemia, unspecified; M79.671 Pain in right foot; M79.672 Pain in left foot; F41.9 Anxiety disorder, unspecified; K59.00 Constipation, unspecified; I70.209 Unspecified atherosclerosis of native arteries of extremities, unspecified extremity; Z79.01 Long term (current) use of anticoagulants; Z85.038 Personal history of other malignant neoplasm of large intestine; Z85.828 Personal history of other malignant neoplasm of skin; Z86.73 Personal history of transient ischemic attack (TIA), and cerebral infarction without residual deficits; Z87.891 Personal history of nicotine dependence; Z88.2 Allergy status to sulfonamides; Z88.6 Allergy status to analgesic agent
CPT/HCPCS: 71010; 71275; 73630; 80048; 80053; 80061; 81001; 82550; 82607; 83036; 83735; 84443; 84484; 85025; 85379; 85610; 85730; 87040; 93922; 93970; 96365; 96375; 96376; G0378; J2270; J2405; J3475; J7030; Q9967

== ENCOUNTER 2017-06-26 17:01 | Emergency (ER) | payer MEDICARE, OTHER ==
[~2017-06-26] VITALS: Ht 152.4 cm; Wt 50.0 kg
[~2017-06-26 17:01] MED LIST changes: -AZIT250T3 PO; -DIAZ5TAB PO; +DIGO0.25 PO; -DILT-64 PO; +DILT300C3 PO; +FURO20TA PO; +POTA10CA PO; +SENN1TAB PO
[2017-06-26] MEDS ORDERED: METO100T PO (17:12)
[2017-06-26] MEDS ORDERED: DIGO0.12 PO (17:12)
[2017-06-26] MEDS ORDERED: OMEP20TA PO (17:12)
[2017-06-26] MEDS ORDERED: DILT-64 PO (17:12)
[2017-06-26 17:19] VITALS: BP 196/102; PULSE 98; RESP 18; TEMP 98.8
[2017-06-26] MEDS ORDERED: SODIUM CHLORIDE 0.9% FLUSH 5 ML FLUSH IV FLUSH PRN (17:30)
[2017-06-26 17:33] VITALS: O2SAT 97
[2017-06-26 17:40] VITALS: BP 189/89; PULSE 83; RESP 18; O2SAT 97
[2017-06-26 17:42] LABS: AUTOMATED NEUTROPHIL # 15.9 TH/MM3 (1.8-7.7); BASOPHIL % 0.2 % (0.0-2.0); EOSINOPHIL % 0.2 % (0.0-4.0); HEMATOCRIT 42.2 % (35.0-46.0); HEMOGLOBIN 13.9 GM/DL (11.6-15.3); LYMPH % 3.8 % (9.0-44.0); LYMPHOCYTE # 0.7 TH/MM3 (1.0-4.8); MEAN CELL VOLUME 85.6 FL (80.0-100.0); MEAN CORPUSCULAR HEMOGLOBIN 28.1 PG (27.0-34.0); MEAN CORPUSCULAR HGB CONC 32.8 % (32.0-36.0); MEAN PLATELET VOLUME 7.8 FL (7.0-11.0); MONO % 8.5 % (0.0-8.0); MONOCYTE # 1.5 TH/MM3 (0-0.9); NEUT % 87.3 % (16.0-70.0); PLATELET COUNT 333 TH/MM3 (150-450); RED BLOOD COUNT 4.93 MIL/MM3 (4.00-5.30); RED CELL DISTRIBUTION WIDTH 12.1 % (11.6-17.2); WHITE BLOOD COUNT 18.1 TH/MM3 (4.0-11.0)
[2017-06-26 17:49] LABS: CALCIUM 8.9 MG/DL (8.5-10.1)
[2017-06-26 17:53] LABS: CREATININE 1.2 MG/DL (0.50-1.00); INTERNATIONAL NORMALIZED RATIO 1.1 RATIO; PROTHROMBIN TIME - PATIENT 11.8 SEC (9.8-11.6)
--- NOTE | 2017-06-26 17:57 | RADRPT ---
EXAM DATE/TIME: 06/26/2017 17:34 [facility] COMPARISON: CT BRAIN W/O CONTRAST, March 30, 2016, 11:53. INDICATIONS : Trauma. Fall. Right periorbital swelling. RADIATION DOSE: 58.28 CTDIvol (mGy) MEDICAL HISTORY : Cardiovascular disease. Cerebrovascular disease. Hypertension.Colorectal cancer. SURGICAL HISTORY : Carotid endarterectomy. Colon resection. ENCOUNTER: Initial ACUITY: 1 day PAIN SCALE: 5/10 LOCATION: cranial TECHNIQUE: Multiple contiguous axial images were obtained of the head. Using automated exposure control and adj ustment of the mA and/or kV according to patient size, radiation dose was kept as low as reasonably a chievable to obtain optimal diagnostic quality images. DICOM format image data is available electro nically for review and comparison. FINDINGS: CEREBRUM: The ventricles are normal for age. Bilateral cortical atrophy and chronic white matter changes. No e vidence of midline shift, mass lesion, hemorrhage or acute infarction. No extra-axial fluid collecti ons are seen. POSTERIOR FOSSA: The cerebellum and brainstem are intact. The 4th ventricle is midline. The cerebellopontine angle i s unremarkable. EXTRACRANIAL: The visualized portion of the orbits is intact. Soft tissue swelling over the right orbit. SKULL: The calvaria is intact. No evidence of skull fracture. CONCLUSION: 1. Diffuse bilateral cortical atrophy and chronic white matter changes. No new or significant changes of the brain compared to the prior study. 2. Soft tissue swelling over the right orbit. Doc Moreland MD on June 26, 2017 at 17:54 Board Certified Radiologist. This report was verified electronically.
--- NOTE | 2017-06-26 18:00 | RADRPT ---
EXAM DATE/TIME: 06/26/2017 17:37 [facility] COMPARISON: No previous studies available for comparison. INDICATIONS : Left medial knee pain with bruising post fall. MEDICAL HISTORY : Cerebrovascular disease. Cardiovascular disease. Hypertension. Colorectal cancer SURGICAL HISTORY : Colon resection. Endarterectomy ENCOUNTER: Initial ACUITY: 1 day PAIN SCORE: 3/10 LOCATION: Left medial knee FINDINGS: The bony structures are osteopenic. There is degenerative changes of the joint with chondrocalcinosis calcification in the lateral meniscus. Medial joint space is narrowed with loss of articular cartila ge and there is medial spurring. Patella is intact. Fluid fluid level in the suprapatellar bursa sugg est effusion. CONCLUSION: Degenerative changes. Osteoporosis. Findings consistent with joint effusion in the suprapatellar burs a Chepe Lynch MD on June 26, 2017 at 17:57 Board Certified Radiologist. This report was verified electronically.
--- NOTE | 2017-06-26 18:00 | RADRPT ---
EXAM DATE/TIME: 06/26/2017 17:37 [facility] COMPARISON: CHEST SINGLE AP, October 05, 2016, 2:59. INDICATIONS : Chest pain post fall. MEDICAL HISTORY : Cerebrovascular disease. Cardiovascular disease. Hypertension. Colorectal cancer SURGICAL HISTORY : Colon resection. Endarterectomy ENCOUNTER: Initial ACUITY: 1 day PAIN SCORE: 3/10 LOCATION: Bilateral chest FINDINGS: A single view of the chest demonstrates the lungs to be symmetrically aerated without evidence of mas s, infiltrate or effusion. There is hyperaeration of both lung vargas. The cardiomediastinal contour s are unremarkable. Osseous structures are intact. CONCLUSION: No acute disease. No significant change has occurred. Doc Moreland MD on June 26, 2017 at 17:58 Board Certified Radiologist. This report was verified electronically.
--- NOTE | 2017-06-26 18:05 | PD ---
HPI Chief Complaint: Fall Time Seen by Provider: 17:13 Travel History International Travel<30 days: No Contact w/Intl Traveler<30days: No Traveled to known affect area: No History of Present Illness HPI 77 yo F arrives by EMS she attempted to urinate however upon lower herself to sit upon the commode become unsteady and fell forward unto the tile striking her right face and right ribs. 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 Pt denies LOC. No cp/ sob. No n/v/d. Family called for well visit and pt was found on the floor by PD , who activated EMS. Pt reports not taking her morning meds including Eliquis and antihypertensives. 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 ) Cardiovascular Problems: Yes (afib) Cerebrovascular Accident: Yes Coronary Artery Disease: Yes Diabetes: No Endocrine: No Genitourinary: No Hepatitis: No Hiatal Hernia: Yes Hypertension: Yes Immune Disorder: No Musculoskeletal: No Neurologic: No Psychiatric: No Reproductive: No Respiratory: No Immunizations Current: No (pt refuses flue shot) Thyroid Disease: No Triglycerides - High: Yes Menopausal: Yes Past Surgical History Abdominal Surgery: No AICD: No Cardiac Surgery: Yes (r endartectomy) Ear Surgery: No Eye Surgery: Yes (CATARACTS BILAT) Genitourinary Surgery: No Gynecologic Surgery: No Joint Replacement: No Oral Surgery: No Pacemaker: No Thoracic Surgery: No Other Surgery: Yes (carotic endarterectomy, section of colon removed) Social History Alcohol Use: No Tobacco Use: No Substance Use: No Allergies-Medications (Allergen,Severity, Reaction): Coded Allergies: Sulfa (Sulfonamide Antibiotics) (Unverified Allergy, Severe, Hives, ) aspirin (Unverified Allergy, Unknown, 06/26/17) Reported Meds & Prescriptions Reported Meds & Active Scripts Active Potassium Chloride ER (Potassium Chloride) 10 Meq Cap 10 Meq PO DAILY Furosemide 20 Mg Tab 20 Mg PO DAILY Reported Omeprazole 20 Mg Tab 40 Mg PO DAILY Metoprolol Tartrate 100 Mg Tab 100 Mg PO BID Diltiazem CD 24 HR 240 Mg Caper 240 Mg PO DAILY Digoxin 0.125 Mg Tab 0.125 Mg PO DAILY Lipitor (Atorvastatin Calcium) 80 Mg Tab 80 Mg PO HS Eliquis (Apixaban) 5 Mg Tab 10 Mg PO BID Review of Systems Except as stated in HPI: all other systems reviewed are Neg General / Constitutional: No: Fever Physical Exam Narrative GENERAL: 77 yo F, WNWD, mild distress 2/2 pain SKIN: Warm and dry. HEAD: Atraumatic. Normocephalic. Erythema, ecchymosis and edema about the right face. No cephalohematoma. EYES: Pupils equal and round. No scleral icterus. No injection or drainage. ENT: No nasal bleeding or discharge. Mucous membranes pink and moist. NECK: Trachea midline. No JVD. CARDIOVASCULAR: Regular rate and rhythm. RESPIRATORY: No accessory muscle use. Clear to auscultation. Breath sounds equal bilaterally. GASTROINTESTINAL: Abdomen soft, non-tender, nondistended. Hepatic and splenic margins not palpable. MUSCULOSKELETAL: Extremities without clubbing, cyanosis, or edema. Contusion about region of L patella. NEUROLOGICAL: Awake and alert. No obvious cranial nerve deficits. Motor grossly within normal limits. Five out of 5 muscle strength in the arms and legs. Normal speech. PSYCHIATRIC: Appropriate mood and affect; insight and judgment normal. Data Data Last Documented VS Vital Signs Date Time Temp Pulse Resp B/P (MAP) Pulse Ox O2 Delivery O2 Flow Rate FiO2 06/26/17 17:40 83 18 189/89 (122) 97 Room Air 06/26/17 17:19 98.8 VS reviewed Vital Signs Date Time Temp Pulse Resp B/P (MAP) Pulse Ox O2 Delivery O2 Flow Rate FiO2 06/26/17 17:40 83 18 189/89 (122) 97 Room Air 06/26/17 17:33 97 Room Air 06/26/17 17:22 Room Air 06/26/17 17:19 98.8 98 18 196/102 (133) Orders Orders Basic Metabolic Panel (Bmp) (06/26/17 17:19) Complete Blood Count With Diff (06/26/17 17:19) Prothrombin Time / Inr (Pt) (06/26/17 17:19) Act Partial Throm Time (Ptt) (06/26/17 17:19) Urinalysis - C+S If Indicated (06/26/17 17:19) Chest, Single Ap (06/26/17 17:19) Ct Brain W/O Iv Contrast(Rout) (06/26/17 17:19) Ecg Monitoring (06/26/17 17:19) Iv Access Insert/Monitor (06/26/17 17:19) Oximetry (06/26/17 17:19) Sodium Chloride 0.9% Flush (Ns Flush) (06/26/17 17:30) Knee, Complete (4vws) (06/26/17 ) Labs Laboratory Tests Test 06/26/17 17:25 06/26/17 18:40 White Blood Count 18.1 TH/MM3 Red Blood Count 4.93 MIL/MM3 Hemoglobin 13.9 GM/DL Hematocrit 42.2 % Mean Corpuscular Volume 85.6 FL Mean Corpuscular Hemoglobin 28.1 PG Mean Corpuscular Hemoglobin Concent 32.8 % Red Cell Distribution Width 12.1 % Platelet Count 333 TH/MM3 Mean Platelet Volume 7.8 FL Neutrophils (%) (Auto) 87.3 % Lymphocytes (%) (Auto) 3.8 % Monocytes (%) (Auto) 8.5 % Eosinophils (%) (Auto) 0.2 % Basophils (%) (Auto) 0.2 % Neutrophils # (Auto) 15.9 TH/MM3 Lymphocytes # (Auto) 0.7 TH/MM3 Monocytes # (Auto) 1.5 TH/MM3 Eosinophils # (Auto) 0.0 TH/MM3 Basophils # (Auto) 0.0 TH/MM3 CBC Comment DIFF FINAL Differential Comment Prothrombin Time 11.8 SEC Prothromb Time International Ratio 1.1 RATIO Activated Partial Thromboplast Time 23.8 SEC Blood Urea Nitrogen 35 MG/DL Creatinine 1.20 MG/DL Random Glucose 113 MG/DL Calcium Level 8.9 MG/DL Sodium Level 139 MEQ/L Potassium Level 3.7 MEQ/L Chloride Level 103 MEQ/L Carbon Dioxide Level 26.0 MEQ/L Anion Gap 10 MEQ/L Estimat Glomerular Filtration Rate 43 ML/MIN Urine Color STRAW Urine Turbidity CLEAR Urine pH 5.5 Urine Specific [place] 1.012 Urine Protein TRACE mg/dL Urine Glucose (UA) NEG mg/dL Urine Ketones NEG mg/dL Urine Occult Blood MOD Urine Nitrite NEG Urine Bilirubin NEG Urine Leukocyte Esterase NEG Urine WBC 0-2 /hpf Urine Squamous Epithelial Cells 0-2 /hpf Microscopic Urinalysis Comment CULT NOT INDICATED MDM Medical Decision Making Medical Screen Exam Complete: Yes Emergency Medical Condition: Yes Medical Record Reviewed: Yes Differential Diagnosis ICH, renal failure, UTI, lung injury, rib fracture, anemia Narrative Course CBC & BMP Diagram 06/26/17 17:25 Calcium Level 8.9 UA: no UTI Last [address] 06/26/17 1719 Signed Impressions: Service Date/Time: Monday, June 26, 2017 17:34 - CONCLUSION: 1. Diffuse bilateral cortical atrophy and chronic white matter changes. No new or significant changes of the brain compared to the prior study. 2. Soft tissue swelling over the right orbit. Doc Moreland MD Chest X-Ray 06/26/17 1719 Signed Impressions: Service Date/Time: Monday, June 26, 2017 17:37 - CONCLUSION: No acute disease. No significant change has occurred. Doc Moreland MD Knee X-Ray 06/26/17 0000 Signed Impressions: Service Date/Time: Monday, June 26, 2017 17:37 - CONCLUSION: Degenerative changes. Osteoporosis. Findings consistent with joint effusion in the suprapatellar bursa Chepe Lynch MD Leukocytosis likely reactive. Pt reports feeling much better, having received no medication/intervention here. With normal workup and improved clinical status patient suitable for discharge home, a disposition furthermore preferable to her. BP improved to 174/89, acceptable for discharge. Diagnosis Primary Impression: Fall Qualified Codes: W19.XXXA - Unspecified fall, initial encounter Additional Impressions: Contusion of face Qualified Codes: S00.83XA - Contusion of other part of head, initial encounter Hypertension Qualified Codes: I10 - Essential (primary) hypertension Referrals: Primary Care Physician 2 days Additional Instructions: You have a choice when it comes to health care, and we are glad that you chose [facility]. Hopefully, we have met your expectations on today's visit. You are welcome to return to [facility] at any time, as we are committed to meeting the health care needs of our community. Med/Other Pt SpecificInfo: No Change to Meds Disposition: 01 DISCHARGE HOME Condition: Stable Tim Jiang MD Jun 26, 2017 18:05
[2017-06-26 19:00] LABS: BILIRUBIN, URINE NEG (NEG); BLOOD, URINE MOD (NEG); GLUCOSE,URINE NEG (NEG); KETONE, URINE NEG (NEG); NITRITE,URINE NEG (NEG); PH, URINE 5.5 (5.0-8.5); URINE LEUKOCYTE ESTERASE NEG (NEG)
[2017-06-26 19:08] LABS: URINE COLOR STRAW (YELLW/STRAW)
[2017-06-26 19:09] LABS: SQUAMOUS EPITHELIAL CELL URINE 0-2 /hpf (0-5); WBC, URINE 0-2 /hpf (0-5)
[2017-06-26 19:43] VITALS: BP 168/81; TEMP 98.5
[2017-06-26 22:16] VITALS: BP 178/82; PULSE 78; RESP 14; O2SAT 98
== END 2017-06-26 22:18 | disposition home or self-care (01) ==
LOC: PHED 17:01
DX: S00.83XA Contusion of other part of head, initial encounter (principal); I10 Essential (primary) hypertension; I48.91 Unspecified atrial fibrillation; Z86.73 Personal history of transient ischemic attack (TIA), and cerebral infarction without residual deficits; Y92.002 Bathroom of unspecified non-institutional (private) residence as the place of occurrence of the external cause; W18.12XA Fall from or off toilet with subsequent striking against object, initial encounter
CPT/HCPCS: 70450; 71010; 73564; 80048; 81001; 85025; 85610; 85730